=== PATIENT | female | born 1985 | race Caucasian/White ===

== ENCOUNTER 2018-05-22 11:55 | Outpatient (REF) | payer SELFPAY ==
[2018-05-22 20:12] LABS: Anion Gap 8.5 mmol/L (3-11); BUN 8 mg/dL (7-18); CO2 27.5 mmol/L (21.0-32.0); CREATININE 0.72 mg/dL (0.55-1.02); Chloride 101 mmol/L (98-107); Glucose 86 mg/dL (70-100); Potassium 4.8 mmol/L (3.5-5.1); Sodium 137 mmol/L (136-145)
[2018-05-23 12:54] LABS: Calcium 9.2 mg/dL (8.5-10.1)
== END 2018-05-22 12:15 ==
LOC: NCHCN 11:55
PROVIDERS: PCP Family Medicine; Visit Provider Family Medicine
DX: I10 Essential (primary) hypertension (principal)
CPT/HCPCS: 80048

== ENCOUNTER 2018-05-25 19:10 | Emergency (ER) | payer SELFPAY ==
[2018-05-25] VITALS (9 sets, daily range): BP systolic 153–156; BP diastolic 79–87; PULSE 98–114; RESP 4–39; TEMP 36.8; O2SAT 95–97
--- NOTE | 2018-05-25 19:26 | DI.RAD_ITS ---
SYMPTOMS/DIAGNOSIS: COUGH, SHORTNESS OF BREATH PA AND LATERAL CHEST: Comparison is made with August,. There is respiratory motion on the PA view. The heart size is within normal limits for degree of inspiration. The lungs appear clear. IMPRESSION: Limited exam. No acute abnormality.
--- NOTE | 2018-05-25 19:34 | ED.GENADUL_ITS ---
Discharge Plan Disposition Patient Disposition: HOME Condition: Fair Discharge Details Chief Complaint: RespSymp Clinical Impression: Pneumonia, Asthma exacerbation Primary Care Provider: Rosa Steve V ED Provider: Bernarda Presley Home Meds and New Rx's Prescriptions: New ipratropium-albuterol 0.5 mg-3 mg(2.5 mg base)/3 mL solution for nebulization 3 ml IH QID PRN (Reason: shortness of breath or wheezing) Qty: 15 RF: 0 azithromycin 250 mg tablet See Label Instructions .ROUTE .COMPLEX Qty: 6 RF: 0 No Action ibuprofen 800 MG tablet 800 mg PO Q8H PRN Qty: 60 RF: 1 atenolol 25 MG tablet 50 mg PO DAILY RF: 0 loratadine 10 MG tablet RF: 0 omeprazole 40 mg Capsule,Delayed Release(Dr/Ec) 40 mg PO BID RF: 0 lisinopril 10 mg Tablet 50 mg PO DAILY RF: 0 Discharge Instructions Instructions: Asthma (ED), Pneumonia (ED) Additional Instructions: Encourage hydration. Take antibiotics as prescribed, even if symptoms improve please take the entire course. Use the duoneb as prescribed to help with wheezing and shortness of breath. Please follow up with primary care next week for reevaluation. If you develop fevers/chills, increased shortness of breath or difficulty breathing please seek care urgently once again. Referrals: Rosa Steve MD [Primary Care Provider] - Medical Decision Making Patient is a 32-year-old female, coming by her , with chief complaint of cough and shortness of breath times 3 days. She reports that her cough has progressively been increasing. Reports is been dry nonproductive. SHe endorses pleuritic discomfort particularly with cough. States that today she had increased shortness of breath. Reports she is been using her albuterol inhaler without relief. No history of DVT. Patient is an active smoker, reports she smokes 1 pack/day. Denies any fevers or chills. Reports that she has had bilateral ear discomfort and sore throat but states that this is been improving since yesterday. Denies any GI upset, no nausea, vomiting or diarrhea. Patient status post tubal ligation. AT the time I evaluated the patient, HR 115, O2 93% RA. We will treat the patient with a duo nebulizer, obtain chest x-ray and laboratory evaluation. The patient received a DuoNeb, wheezing he has resolved. However, at this point I am now noting crackles in the right lower lobe Chest x-ray reviewed by radiologist. They note a small patchy density in the medial basal segment of the right lower lobe consistent with pneumonia given the proper clinical setting. Clear left lung. No pleural effusion or pneumothorax. Cardiomediastinal silhouette and pulmonary sutures are within normal limits White count is elevated at 14. D-dimer is less than 500. Laboratory evaluation otherwise without acute abnormality. Troponin less than 0.02 Patient received IV hydration. Heart rate is down to 98. Oxygen 97%. She does report that she continues to feel anxious regarding medical care. States that typically she gets white coat syndrome and her heart rate does typically elevate. Reports she is feeling much improved this is a duo nebulizer. Patient will begin on azithromycin, will give first dose here. Patient responded very well to the duo nebulizer. She does report that she has access to a nebulizer at home. Patient will be prescribed duo nebulizer and sent home with 2 tonight as pharmacies are currently closed. Encourage hydration. We discussed new/worsening symptoms when to seek care urgently once again. Advise follow-up with primary care next week for reevaluation. All of her questions and concerns were addressed and she is in agreement this plan HPI General Mode of arrival: ambulatory . Date/Time Provider Initiated Documentation: 05/25/18 19:18 . Limitations to Documentation: no limitations . Information obtained by: patient and family . History of Present Illness 32 year old F presents to the emergency department with the chief complaint of cough, described as moderate, Quality is described as aching, and is localized to the chest (diffuse discomfort). Patient denies radiation to back. Patient started experiencing this day(s) (3) and it has been constant. No relieving factors improve symptom(s), No exacerbating factors reported . Patient notes chest pain, cough and shortness of breath; denies fever/chills, headaches, loss of appetite, malaise, nausea/vomiting, rash, syncope and weakness. Patient did receive the following treatments prior to arrival, other (albuterol inhaler) Related Data Home Medications Medication Instructions Recorded Confirmed atenolol 50 mg PO DAILY 08/31/13 05/25/18 ibuprofen 800 mg PO Q8H PRN #60 tab 11/19/13 05/25/18 loratadine 04/26/17 azithromycin See Label Instructions .ROUTE 05/25/18 .COMPLEX #6 tab ipratropium-albuterol 3 ml IH QID PRN #15 ml 05/25/18 lisinopril 50 mg PO DAILY 05/25/18 05/25/18 omeprazole 40 mg PO BID 05/25/18 05/25/18 Previous Rx's Medication Instructions Recorded azithromycin See Label Instructions .ROUTE 05/25/18 .COMPLEX #6 tab ipratropium-albuterol 3 ml IH QID PRN #15 ml 05/25/18 Allergies Allergy/AdvReac Type Severity Reaction Status Date / Time methotrexate Allergy Severe Anaphylaxsi Unverified 05/25/18 19:19 s Penicillins Allergy Intermediate Skin Rash Unverified 05/25/18 19:19 Sulfa (Sulfonamide Allergy Intermediate RASH Unverified 05/25/18 19:19 Antibiotics) amoxicillin Allergy Mild Skin Rash Unverified 05/25/18 19:19 enalapril AdvReac Severe resp. Unverified 05/25/18 19:19 issues, chest pain General Stated Complaint: RespSymp KAREN: 3 Review of Systems Constitutional Reports as per HPI and Denies headache(s) Eyes Denies eye discharge ENT Reports as per HPI and Denies headache(s) Cardiovascular Reports as per HPI Respiratory Reports as per HPI Gastrointestinal Reports as per HPI Musculoskeletal Denies back pain Integumentary/Breasts Denies rash Neurologic Denies headache(s) [facility] Social History Smoking/Tobacco Use Status: Current every day Surgical History Ligation of fallopian tube Exam Const General: cooperative, healthy appearing, comfortable, no acute distress, well developed and well groomed Nutritional Appearance: average body habitus and well nourished Orientation: alert and awake [facility] Head: normal to inspection, normocephalic and atraumatic Ears: hearing grossly normal bilaterally, external ears normal and TM's normal bilaterally General nose exam: external nose normal Face and sinus: normal facial exam and sinuses nontender Mouth: lip normal, tongue normal, mucous membranes dry (patient appears dry on exam), no drooling and no trismus Teeth and gingiva: dentition normal Throat: posterior oropharynx normal, tonsils normal and uvula midline Eyes General: appearance normal, both eyes and all related structures Neck Neck: normal visual inspection, full ROM, no lymphadenopathy and no meningeal signs Resp Effort & Inspection: normal respiratory effort, able to speak in complete sentences and no respiratory distress Auscultation: no crackles, lung sounds not diminished, no rales, no rhonchi and wheezes expiratory wheezes (diffuse) Cardio Rate: regular rate Rhythm: regular rhythm Heart Sounds: S1 normal and S2 normal Skin General skin exam: no rashes or lesions noted Lesions: no lesions Rashes: no rashes Neuro General: alert, awake and oriented x3 Cognition: normal cognition Speech: speech normal Gait: normal gait Extrem General: no pedal edema and no calf tenderness Psych Appearance: grossly normal and well kempt Mental Status: mental status grossly normal Speech and Movement: speech and movement normal Mood: congruent mood Course Vital Signs Temperature 36.8 C 05/25/18 19:14 Pulse 113 H 05/25/18 19:14 Respiratory Rate 16 05/25/18 19:14 Blood Pressure 156/87 H 05/25/18 19:14 Pulse Oximetry 96 05/25/18 19:14 Temperature 36.8 C 05/25/18 19:14 Temperature Source Skin 05/25/18 19:14 Pulse 113 H 05/25/18 19:14 Respiratory Rate 16 05/25/18 19:14 Respiratory Effort 05/25/18 19:17 Respiratory Depth Normal 05/25/18 19:17 Blood Pressure 156/87 H 05/25/18 19:14 Blood Pressure Position Sitting 05/25/18 19:14 Pulse Oximetry 96 05/25/18 19:14 Oxygen Delivery Method Room Air 05/25/18 19:14 Oxygen Flow Rate 0 05/25/18 19:14
[2018-05-25] MEDS: Normal Saline 1,000 ML 1000 ML IV ×2 (19:36→20:46)
[2018-05-25] MEDS: Albuterol/Ipratropium 3 ML UPD VIAL (19:36)
[2018-05-25 19:41] LABS: Abs Immature Grans 0.04 k/cumm (0.0-0.09); Absolute Basophil Count 0.04 k/cumm (0.0-0.2); Absolute Eosinophil Count 0.27 k/cumm (0.0-0.7); Absolute Lymphocyte Count 2.84 k/cumm (1.2-3.4); Absolute Monocyte Count 0.86 k/cumm (0.11-0.7); Absolute Neutrophil Count 10.35 k/cumm (1.2-6.7); Basophils % 0.3; Eosinophils % 1.9; HCT 39.8 % (36.0-46.0); Immature Grans % 0.3; Lymphocytes % 19.7; Mean Corp. HGB Concentration 35.2 g/dL (32.0-36.0); Mean Corpuscular Hemoglobin 30.5 pg (27.0-33.0); Mean Corpuscular Volume 86.7 fL (80-95); Mean Platelet Volume 10.1 fL (8.0-11.0); Neutrophils % 71.8; Platelet Count 319 x1000/uL (130-400); RBC 4.59 m/cumm (4.00-5.20); RBC Distribution Width 12.7 % (11.7-14.6); White Blood Cell Count 14.41 k/cumm (4.4-10.8)
[2018-05-25 20:04] LABS: ALT 41 U/L (12-78); AST 19 U/L (15-37); Albumin 3.9 g/dL (3.4-5.0); Alkaline Phosphatase 51 U/L (46-116); BUN 12 mg/dL (7-18); Bilirubin, Total 0.3 mg/dL (0.2-1.0); Calcium 9.3 mg/dL (8.5-10.1); Chloride 100 mmol/L (98-107); Glucose 148 mg/dL (70-100); Magnesium 1.6 mg/dL (1.8-2.4); Potassium 3.8 mmol/L (3.5-5.1); Sodium 137 mmol/L (136-145); Total Protein 7.7 g/dL (6.4-8.2)
--- NOTE | 2018-05-25 20:05 | DI.VRAD_ITS ---
EXAM: XR Chest, 2 Views EXAM DATE/TIME: 05/25/2018 7:29 PM CLINICAL HISTORY: 32 years old, female; Signs and symptoms; Cough TECHNIQUE: XR of the chest, 2 views. COMPARISON: CR ABD FLAT UPRIGHT PA CHEST 03/22/2015 1:12 PM FINDINGS: Small patchy density in the medial basilar segment of the right lower lobe consistent with pneumonia given the proper clinical setting. Clear left lung. No pleural effusion or pneumothorax. The cardiomediastinal silhouette and pulmonary suture are within normal limits. IMPRESSION: Small right lower lobe opacity consistent with pneumonia given the proper clinical setting. Dictated and Authenticated by: Yo Gore MD. Ordering:AILYN KAMINSKI MD
[2018-05-25 20:11] LABS: Troponin I < 0.02 ng/mL (0.00-0.06)
[2018-05-25 20:22] LABS: D-Dimer 376 ng/mlFEU (<500)
[2018-05-25] MEDS: Azithromycin 250 MG TAB 500 MG PO (20:52)
[2018-05-25] MEDS: Albuterol/Ipratropium 3 ML UPD VIAL 6 ML UPD (21:09)
== END 2018-05-25 21:20 | disposition home or self-care (01) ==
LOC: ER 21:23
PROVIDERS: Emergency Provider Physician Assistant; PCP Family Medicine
DX: J44.0 Chronic obstructive pulmonary disease with (acute) lower respiratory infection (principal); J18.9 Pneumonia, unspecified organism; J45.909 Unspecified asthma, uncomplicated; F17.210 Nicotine dependence, cigarettes, uncomplicated; I10 Essential (primary) hypertension
CPT/HCPCS: 36415; 80053; 94640; 96360; 96361; 99284; 71046; 83735; 84484; 85025; 85379; J7620

== ENCOUNTER 2018-10-19 17:44 | Emergency (ER) | payer BC, SELFPAY ==
[2018-10-19 17:53] VITALS: BP 158/107; PULSE 83; RESP 18; TEMP 37.1; O2SAT 99
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
[2018-10-19 18:44] VITALS: BP 158/107; PULSE 83; RESP 18; TEMP 37.1; O2SAT 99
== END 2018-10-19 18:47 | disposition home or self-care (01) ==
PROVIDERS: Emergency Provider Emergency Medicine; PCP Family Medicine
DX: I10 Essential (primary) hypertension (principal); S00.03XA Contusion of scalp, initial encounter; W22.8XXA Striking against or struck by other objects, initial encounter
CPT/HCPCS: 99282

== ENCOUNTER 2019-04-10 16:33 | Outpatient (REF) | payer BC, SELFPAY ==
[2019-04-10 20:23] LABS: HCT 38.2 % (36.0-46.0); HGB 13.2 g/dL (12.0-15.5); Mean Corp. HGB Concentration 34.6 g/dL (32.0-36.0); Mean Corpuscular Hemoglobin 30.3 pg (27.0-33.0); Mean Corpuscular Volume 87.8 fL (80-95); Mean Platelet Volume 10.7 fL (8.0-11.0); Platelet Count 364 x1000/uL (130-400); RBC 4.35 m/cumm (4.00-5.20); RBC Distribution Width 12.6 % (11.7-14.6); White Blood Cell Count 10.45 k/cumm (4.4-10.8)
[2019-04-10 21:20] LABS: Anion Gap 11.5 mmol/L (3-11); BUN 7 mg/dL (7-18); C-Reactive Protein 0.27 mg/dL (0.0-0.3); CO2 24.5 mmol/L (21.0-32.0); CREATININE 0.78 mg/dL (0.55-1.02); Calcium 9.1 mg/dL (8.5-10.1); Chloride 101 mmol/L (98-107); Creatine Kinase 223 U/L (26-192); Glucose 85 mg/dL (70-100); Potassium 4.6 mmol/L (3.5-5.1); Sodium 137 mmol/L (136-145); TSH (W/Ref FT4) 1.12 uIU/mL (0.36-3.74)
== END 2019-04-10 16:53 ==
LOC: NCHCN 16:33
PROVIDERS: PCP Family Medicine; Visit Provider Family Medicine
DX: I10 Essential (primary) hypertension (principal); F41.8 Other specified anxiety disorders; F90.9 Attention-deficit hyperactivity disorder, unspecified type; M79.10 Myalgia, unspecified site
CPT/HCPCS: 80048; 82550; 85027; 84443; 86140

== ENCOUNTER 2019-07-25 17:46 | Outpatient (REF) | payer BC, SELFPAY ==
--- NOTE | 2019-07-25 16:30 | PAPFT_PTH ---
PATIENT: Shraddha Fraga LOC: [facility] U#:[id number] AGE/SX: 34/F ROOM: RE07/25/[address]: Rosa Steve V : 1985 BED: DIS: 07/25/2019 SPEC #: [id number] RECD: 07/26/19 12:45 STATUS: LEA REDanielle #: [id number] MISSY: 07/25/19 16:[address]: Rosa Steve V DEPT: [facility] Cytology RECD BY: Ann Lerner Tissues: 1 - CX/ENDOCX FOR PAP SMEARS Procedures: PAP THIN PREP/[facility] Screening HPV DNA PROBE Comments: [id number]
[2019-07-29 11:32] LABS: Hepatitis C Ab w Rflx HCV PCR Negative (Negative)
[2019-07-29 12:53] LABS: HIV-1/2 Ag & Ab Screen Negative (Negative)
[2019-07-29 14:24] LABS: Chlamydia Result Negative (Negative); GC Result Negative (Negative)
== END 2019-07-25 18:06 ==
LOC: NCHCN 17:46
PROVIDERS: PCP Family Medicine; Visit Provider Family Medicine
DX: Z11.3 Encounter for screening for infections with a predominantly sexual mode of transmission (principal); Z11.4 Encounter for screening for human immunodeficiency virus [HIV]; Z12.4 Encounter for screening for malignant neoplasm of cervix; Z11.51 Encounter for screening for human papillomavirus (HPV); Z11.59 Encounter for screening for other viral diseases; Z01.419 Encounter for gynecological examination (general) (routine) without abnormal findings
CPT/HCPCS: 86803; 87389; 87491; 87591; 88142; 87624

== ENCOUNTER 2019-09-30 11:04 | Outpatient (CLI) | payer BC, SELFPAY | END 2019-09-30 11:24 | PROVIDERS: PCP Family Medicine; Visit Provider Internal Medicine Cardiovascular Disease | DX: I10 Essential (primary) hypertension (principal); R01.1 Cardiac murmur, unspecified | CPT/HCPCS: 93005; 93010 ==

== ENCOUNTER 2019-11-05 14:41 | Outpatient (CLI) | payer BC, SELFPAY ==
[2019-11-08 09:23] LABS: SARS-CoV-2 RNA Undetected (Undetected); SARS-CoV-2 Specimen Source Nasal
== END 2019-11-05 15:01 ==
PROVIDERS: PCP Family Medicine; Visit Provider Physician Assistant
DX: Z20.828 Contact with and (suspected) exposure to other viral communicable diseases (principal); R05 Cough; R06.02 Shortness of breath; R50.9 Fever, unspecified
CPT/HCPCS: U0003

== ENCOUNTER 2020-01-13 02:28 | Outpatient (CLI) | payer BC, SELFPAY ==
--- NOTE | 2020-01-13 12:15 | DI.US_ITS ---
APPROVED REPORT EXAM: Comprehensive 2D, Doppler, and color-flow Echocardiogram Patient Location: Out-Patient Pharmacy Retail Support Specialist: Maribell Mccracken RDCS (AE) Indications: Murmur, HTN Other Information Study Quality: Good Conclusion Left Ventricle : The left ventricle is normal size. The left ventricular systolic function is normal. The left ventricular ejection fraction is within the normal range. There is normal left ventricular wall thickness. There is normal LV segmental wall motion. The left ventricular diastolic function is normal. LVEF is 60%. Right Ventricle : The right ventricle is normal size. The right ventricular systolic function is norm al. The RVSP is 28.7 mmHg. Atria : The left atrium size is normal. The right atrium size is normal. There are no hemodynamically significant valvular lesions. Great Vessels : IVC is normal in size and collapses >50% with inspiration. There is no prior study available for comparison. Wall motion Left Ventricle The left ventricle is normal size. The left ventricular systolic function is normal. The left ventric ular ejection fraction is within the normal range. There is normal left ventricular wall thickness. T here is normal LV segmental wall motion. The left ventricular diastolic function is normal. There is no ventricular septal defect visualized. LVEF is 60%. Right Ventricle The right ventricle is normal size. The right ventricular systolic function is normal. The RVSP is 28 .7 mmHg. Atria The left atrium size is normal. The right atrium size is normal. Aortic Valve Aortic valve is trileaflet. There is no aortic valvular stenosis. No aortic regurgitation is present. Mitral Valve The mitral valve is normal in structure. No evidence of mitral valve stenosis. Trace mitral regurgita tion. Tricuspid Valve The tricuspid valve is normal in structure. There is no tricuspid valve stenosis. Mild tricuspid regu rgitation. Pulmonic Valve The pulmonary valve is normal in structure. There is no pulmonic valvular stenosis. There is no pulmo ruby valvular regurgitation. Great Vessels The aortic root is normal in size. Ascending aorta is borderline dilated. Aortic arch is normal in ca liber. IVC is normal in size and collapses >50% with inspiration. Pericardium There is no pericardial effusion. There is no pleural effusion. 2D Dimensions IVSD d PLAX 0.96 cm F: 0.6-1.0 LV Vol A2C d MOD 88.1 mL LVPW d PLAX 0.95 cm F: 0.6 - 1.0 LV Vol A4C d MOD 77.3 mL LVID d PLAX 4.33 cm F: 3.8 - 5.2 LA vol/ BSA A2C s A-L 20.3 mL/m2 LVDs 3.05 cm F: 2.2 - 3.5 LA vol/ BSA A4C s A-L 17.7 mL/m2 Ao Root d 2.08 cm F: 2.7 - 3.3 LA Vol/ BSA Biplane s A-L 19.8 mL/m2 RA Area A4C 15.45 cm2 LA Area A4C s MOD 13.53 cm2 RA Vol/ BSA A4C s A-L 23.0 mL/m2 LA Area A2C s MOD 13.82 cm2 Ao Asc Diam d 3.25 cm F: 2.3 - 3.1 LV EF A4C MOD 60.2 % LV EF Teichholz 55.5 % LV EF A2C MOD 61.8 % LVEF (Kidd's) 61.43 % F: 54 - 74 LV EF Biplane MOD 61.4 % LV Volume 64.80 mL F: 46 - 106 SV 51.28 mL LV Volume Index 35.80 mL/m2 F: 29 - 61 SV Index 28.33 mL/m2 LV Vol Biplane MOD 83.5 mL FS 28.60 % M-Mode TAPSE 2.82 cm (M/F) >1.7 LV Diastology MV E' medial 0.090 (>0.07 m/s) E/A Ratio 1.5 LV E/e MED 12.10 (<14) MV E Vmax 1.09 (0.4-1.3 m/s) MV E' lateral 0.134 (>0.1 m/s) MV A Vmax 0.75 (0.4-1.3 m/s) LV E/e LAT 8.10 (<14) MV E/A Ratio 1.40 MV E/E' medial 12.12 MV E/E' lateral 8.14 Aortic Valve LVOT Area 2.55 cm2 AoV Area Vmax 2.03 cm2 LVOT Vmax 1.35 m/s AoV Area/ BSA (Vmax) 1.12 cm2/m2 LVOT Mean Ortega. 0.88 m/s YONI Mean Ortega. 1.90 cm2 LVOT Peak Grad 7.3 mmHg YONI Mean Ortega. Index 1.05 cm2/m2 LVOT Mean Grad 3.7 mmHg LVOT VTI 0.296 m LVOT Diam s 1.80 cm AoV Vmax 1.69 m/s Velocity Ratio 0.79 AoV Mean Ortega. 1.18 m/s AoV Peak Grad 11.5 mmHg LVOT SV 75.67 mL AoV Mean Grad 6.2 mmHg AoV VTI 0.334 m AoV Area VTI 2.27 cm2 AoV Area/ BSA (VTI) 1.25 cm/m2 Mitral Valve MV DT 207 (160-240 msec) MV PHT 60 msec MV Area PHT 3.66 cm2 Pulmonary Valve PV Vmax 1.35 (0.5-1.5 m/s) RVOT Peak Gr. 3.33 mmHg PV Peak Grad 7.3 mmHg RVOT Mean Gr. 1.65 mmHg PV Mean Grad 4.1 mmHg RVOT VTI 0.199 m PV VTI 0.292 m RVOT Vmax 0.91 m/s Tricuspid Valve TR Peak Grad 25.6 mmHg TR Vmax 2.53 m/s RA Pressure 3.00 mmHg RVSP (TR) 28.7 mmHg
== END 2020-01-13 02:48 ==
PROVIDERS: PCP Family Medicine; Visit Provider Internal Medicine Cardiovascular Disease
DX: I10 Essential (primary) hypertension (principal); R01.1 Cardiac murmur, unspecified
CPT/HCPCS: 93306

== ENCOUNTER 2020-03-30 00:47 | Outpatient (CLI) | payer BC, SELFPAY ==
--- NOTE | 2020-03-30 08:15 | DI.US_ITS ---
EXAM: US HERNIA CLINICAL HISTORY: Right groin mass,R19.09 TECHNIQUE: Ultrasound performed using standard protocol. COMPARISON: US US ECHOCARDIOGRAM from 01/13/2020 FINDINGS: Ultrasound examination of the right inguinal region was performed to evaluate questionable right groi n mass. A right inguinal lymph node was incidentally measuring about 11 millimeters in greatest diam eter with normal architecture. There is a 26 millimeter in diameter apparent inguinal hernia which was not demonstrated to be comple tely reducible. No definite bowel component of the hernia. IMPRESSION: Small right inguinal hernia as described above. DATA REPOSITORY:
== END 2020-03-30 01:07 ==
PROVIDERS: PCP Family Medicine; Visit Provider Surgery
DX: K40.90 Unilateral inguinal hernia, without obstruction or gangrene, not specified as recurrent (principal)
CPT/HCPCS: 76857

== ENCOUNTER 2020-05-26 21:56 | Outpatient (REF) | payer BC, SELFPAY ==
[2020-05-28 20:45] LABS: COVID-19 RT-PCR Result NEGATIVE (Negative)
== END 2020-05-26 22:16 ==
LOC: NCHCN 21:56
PROVIDERS: PCP Family Medicine; Visit Provider Family Medicine
DX: R05 Cough (principal)
CPT/HCPCS: U0003

== ENCOUNTER 2020-07-24 02:07 | Outpatient (CLI) | payer BC, SELFPAY ==
[2020-07-27 21:28] LABS: COVID-19 RT-PCR Result NEGATIVE (Negative)
== END 2020-07-24 02:27 ==
PROVIDERS: PCP Family Medicine; Visit Provider Surgery
DX: Z11.59 Encounter for screening for other viral diseases (principal); Z01.818 Encounter for other preprocedural examination
CPT/HCPCS: U0003

== ENCOUNTER 2020-07-28 06:04 | Day surgery (SDC) | payer BC, SELFPAY ==
[2020-07-28 06:16] VITALS: BP 141/99; PULSE 86; RESP 22; TEMP 36.5; O2SAT 99
[2020-07-28] MEDS: Lactated Ringers 1,000 ML 80 ML IV (06:53)
--- NOTE | 2020-07-28 07:01 | W.PM.HP.N ---
Date of service: 07/28/20 Time of Service: 07:01 Assessment and Plan Assessment and plan (1) Right groin mass: Status: Acute Assessment and plan: We discussed right inguinal hernia repair. The procedure was described including the risk of infection, bleeding, recurrence, chronic pain or numbness or vascular injury. The alternative is observation although hernias tend to enlarge and become more symptomatic over time. The patient was advised not to lift more than 15 pounds for one month postop. The patient agrees to proceed. If the chronic cyst looks amenable to excision, this will be done as well. There is a risk of infection, bleeding, healing problems. History of Present Illness Narrative: Lump in right groin since September. Increased in size. Bothersome along underwear line. Antibiotics may have helped slightly. US showed small fat containing hernia. She also recently notes a small draining cyst a little lower in the groin. Review of Systems All systems reviewed & are unremarkable except as noted in HPI and below PFSH Medical History ADHD Allergic rhinitis Boil Depression with anxiety Dysfunctional uterine bleeding GERD (gastroesophageal reflux disease) Headache Heart murmur Herpes simplex HTN (hypertension) Ingrown toenail Migraine Myalgia Preeclampsia reported by patient. PTSD (post-traumatic stress disorder) Right groin mass Sleep apnea Viral upper respiratory infection Vitamin D deficiency Weight gain Surgical History Ligation of fallopian tube Family History Mother Stroke Uncle Myocardial infarct Paternal Grandmother Stroke Father Myocardial infarct Social History Smoking/Tobacco Use Status: Current every day Tobacco Type: cigarettes Years smoked: 16 Tobacco: How many years used: 16 Counseling given: patient declined Smoking risk assessment performed?: Yes Alcohol Intake: current Alcohol Intake frequency: holidays/special occasions only Drug use: Daily Substance use type: marijuana What type of physical activity do you participate in: none Do you feel safe at home: Yes Do you feel safe in your relationship?: Yes Meds Home Medications and Allergies Home Medications Medication Instructions Recorded Confirmed Type omeprazole 40 mg PO BID 05/25/18 07/28/20 History acyclovir 400 mg PO TID PRN PRN 10/19/18 07/28/20 History albuterol sulfate [ProAir HFA] 2 puff INHALATION Q6H PRN 10/19/18 07/28/20 History atenolol 50 mg PO DAILY 10/19/18 07/28/20 History cyclobenzaprine 5 mg PO QHS PRN 10/19/18 07/28/20 History losartan 50 mg PO DAILY 10/19/18 07/28/20 History multivitamin 1 tab PO DAILY 09/30/19 07/28/20 History duloxetine 30 mg capsule,delayed 60 mg PO DAILY cap 01/23/20 07/28/20 History release lidocaine 5 % topical ointment 1 applic TP QID 03/23/20 07/28/20 History nicotine 21 mg/24 hr daily 1 patch TD DAILY 03/23/20 History transdermal patch hydrochlorothiazide 25 mg tablet 25 mg PO DAILY 03/26/20 07/28/20 History Allergies Allergy/AdvReac Type Severity Reaction Status Date / Time clindamycin Allergy Severe rash Verified 07/28/20 06:26 methotrexate Allergy Severe Anaphylaxsi Verified 07/28/20 06:26 s azithromycin [From Zithromax] Allergy Intermediate unknown Verified 07/28/20 06:26 Penicillins Allergy Intermediate Skin Rash Verified 07/28/20 06:26 Sulfa (Sulfonamide Allergy Intermediate RASH Verified 07/28/20 06:26 Antibiotics) sumatriptan [From Imitrex] Allergy Intermediate It made Verified 07/28/20 06:26 me stop breathing amoxicillin Allergy Mild Skin Rash Verified 07/28/20 06:26 enalapril AdvReac Severe resp. Verified 07/28/20 06:26 issues, chest pain bupropion [From Wellbutrin] AdvReac Intermediate chronic Verified 07/28/20 06:26 cough medroxyprogesterone AdvReac Intermediate weight gain Verified 07/28/20 06:26 [From Depo-Provera] Exam Narrative Exam Narrative: Alert Lungs CTA Heart RRR Abdomen soft, tender RLQ with impulse felt in region of inguinal hernia. Closer to mons pubis there is a small area of chronic inflammation. No abscess. Results Last Vital Signs Temp 97.7 F 07/28/20 06:16 Pulse 86 07/28/20 06:16 Resp 22 07/28/20 06:16 BP 141/99 H 07/28/20 06:16 Pulse Ox 99 07/28/20 06:16 COVID-19 Screening Have you, or household traveled for leisure in last 14 days?: No Had IN PERSON contact w/suspected or confirmed C-19 person: No
[2020-07-28] MEDS: levoFLOXacin 500 MG/100 ML BAG 66.667 MG IVPB (07:05)
--- NOTE | 2020-07-28 07:31 | W.PM.DSUDISC ---
Discharge Plan Disposition Patient Disposition: HOME Condition: Good Discharge Details Reason For Visit: Right inguinal hernia repair, groin cyst excision Attending Provider: Lesli Melendez Primary Care Provider: Rosa Steve V Home Meds and New Rx's Prescriptions: New oxycodone-acetaminophen [Percocet] 5-325 mg tablet 1 tab PO Q6H PRNQty: 14 RF: 0 Continued multivitamin Tablet 1 tab PO DAILY RF: 0 nicotine [Nicoderm CQ] 21 mg/24 hr patch 24 hour 1 patch TD DAILY RF: 0 lidocaine 5 % ointment 1 applic TP QID RF: 0 hydrochlorothiazide 25 mg tablet 25 mg PO DAILY RF: 0 duloxetine [Cymbalta] 30 mg capsule,delayed release(DR/EC) 60 mg PO DAILY RF: 0 omeprazole 40 mg Capsule,Delayed Release(Dr/Ec) 40 mg PO BID RF: 0 losartan 50 mg Tablet 50 mg PO DAILY RF: 0 acyclovir 400 mg Tablet 400 mg PO TID PRN PRNRF: 0 albuterol sulfate [ProAir HFA] 90 mcg/actuation Hfa Aerosol Inhaler 2 puff INHALATION Q6H PRNRF: 0 atenolol 50 mg Tablet 50 mg PO DAILY RF: 0 cyclobenzaprine 5 mg Tablet 5 mg PO QHS PRNRF: 0 Discharge Instructions Additional Instructions: The top bandage can be removed tomorrow. The steri strips will usually stick for about a week. When the edges start to curl up, they can be removed. It is okay to shower tomorrow, the water can run over the steri strips Do not swim or soak in a tub for two weeks Call for any concerns including fever, increased pain, vomiting, incision redness or drainage. Do not lift more than 15 pounds for four weeks. Walking and stairs are fine. Do not drive if on narcotic pain meds or if limited by pain. May use Tylenol alternating with ibuprofen for pain control. Ice is also an option. The maximum dose for Tylenol is 4000 mg/day. May use ibuprofen 800 mg every 8 hours as needed. If concerned about constipation, you may use a stool softener or milk of magnesia. Referrals: Lesli Melendez MD [ [facility] STAFF PHYSICIAN] - 08/03/20 Activity:: Do not lift more than 15# Remove Dressings/Wound Care:: 24 hours Shower/Bathe:: 24 hours Diet:: As Tolerated Discharge Orders Discharge Orders: Discharge Order (Routine); Ordered 07/28/20 Ordered By: Lesli Melendez DS: Diagnosis Discharge Diagnosis (1) Direct inguinal hernia of right side: Status: Acute (2) Groin cyst: Status: Acute
--- NOTE | 2020-07-28 07:34 | W.PM.OP ---
Date of service: 07/28/20 Time of Service: 09:02 Operative Note Operative Note DATE OF PROCEDURE: 07/28/20 PRE-OP DIAGNOSIS: Right inguinal hernia, chronic right groin cyst POST-OP DIAGNOSIS: same PROCEDURE: Right direct inguinal hernia repair with mesh, excision chronic right groin cyst SURGEON: Lesli Melendez CIRCULAR KNITTER: Doris Meyers ANESTHESIA: MAC and local Indications: This 35 year old woman presented with a tender lump in the right groin. US showed a small fat containing hernia. She has also developed a small skin cyst lower in the groin that drains slightly. Procedure Description: The patient was placed supine on the operating table and her right groin was prepped and draped sterilely. The ASIS and pubic tubercle were identified and a transverse incision marked between the 2 locations. Local anesthetic was infiltrated into the hernia incision and around the chronic groin cyst. The Ioban was placed. Incision was made with knife and subcutaneous tissue divided with cautery down to the external oblique fascia. Any bridging veins that were encountered were clamped, divided and ligated with 3-0 Vicryl ties. Local anesthetic was infiltrated underneath the external oblique fascia. A small incision was made in the fascia and extended bluntly through the external inguinal ring. The round ligament was dissected free at the level of the pubic tubercle and encircled with a Counselor drain. There was small defect within the floor of the inguinal canal containing fat. Exploration of the round ligament/internal inguinal area did not reveal an indirect hernia. The defect in the floor of the canal was closed with a 2-0 Prolene suture. A flat sheet of mesh was sutured to the floor of the inguinal canal in standard Louis fashion. The ligament was inspected and was not compressed by the mesh. There was good hemostasis. The external oblique fascia was closed with a running 3-0 Vicryl stitch and Sandra's fascia closed with interrupted 3-0 Vicryl sutures. The skin was then closed with a running 4 Monocryl subcuticular stitch and dressed with steri strips. The chronic cyst opening was excised with an elliptical incision to reveal an area of subcutaneous granulation tissue and fibrous tissue consistent with a chronic cyst. This was dissected free with sharp and cautery dissection. The skin was closed with 5-0 nylon sutures times 5. Excision diameter 1.5cm. She tolerated the procedure well and was stable to recovery.
--- NOTE | 2020-07-28 08:55 | SOFT_PTH ---
PATIENT: Shraddha Fraga LOC: [facility] U#:[id number] AGE/SX: 35/F ROOM: RE07/28/[address]: Lesli Melendez MD : [id number] BED: DIS: 07/28/2020 SPEC #: [id number] RECD: 07/28/20 12:44 STATUS: LEA REQ #: [id number] MISSY: 07/28/20 08:[address]: Lesli Melendez DEPT: Surgical Specimen RECD BY: Ann Lerner ENTERED: 07/28/20 12:45 SP TYPE: SOFT OTHR DR: Rosa Steve V Tissues: 1 - SOFT TISSUE-CYST(NOT LIPOMA) Procedures: GROSS AND MICRO LEVEL 4 Comments: [id number]
[2020-07-28] MEDS: Lidocaine 2% Multi-Dose 50 ML VIAL (08:56)
[2020-07-28] MEDS: Bupivacaine 0.5% Pres-Free 30 ML VIAL (08:56)
[2020-07-28 09:05] VITALS: BP 100/57; PULSE 77; RESP 24; TEMP 36.5; O2SAT 98
[2020-07-28 09:10] VITALS: BP 106/53; PULSE 79; RESP 24; TEMP 36.5; O2SAT 96
[2020-07-28 09:15] VITALS: BP 98/85; PULSE 79; RESP 29; TEMP 36.5; O2SAT 94
[2020-07-28 09:30] VITALS: BP 120/61; PULSE 76; RESP 19; TEMP 36.5; O2SAT 98
[2020-07-28 10:12] VITALS: BP 115/69; PULSE 66; RESP 20; TEMP 36.3; O2SAT 100
== END 2020-07-28 10:37 | disposition home or self-care (01) ==
PROVIDERS: PCP Family Medicine; Visit Provider Surgery
PROC: (CPT 49505; principal; 2020-07-28 07:30)
DX: K40.90 Unilateral inguinal hernia, without obstruction or gangrene, not specified as recurrent (principal); L72.8 Other follicular cysts of the skin and subcutaneous tissue; K21.9 Gastro-esophageal reflux disease without esophagitis; I10 Essential (primary) hypertension; G47.33 Obstructive sleep apnea (adult) (pediatric)
CPT/HCPCS: 49505; 11402; 81025; 88305; NC; C1781; J1100; J1885; J1956; J2250; J2405; J2704

== ENCOUNTER 2020-09-30 08:54 | Outpatient (REF) | payer BC, SELFPAY ==
[2020-09-30 15:50] LABS: ALT 32 U/L (14-59); AST 15 U/L (15-37); Albumin 3.9 g/dL (3.4-5.0); Alkaline Phosphatase 37 U/L (46-116); Anion Gap 12.3 mmol/L (3-11); BUN 17 mg/dL (7-18); Bilirubin, Total 0.3 mg/dL (0.2-1.0); CO2 25.7 mmol/L (21.0-32.0); CREATININE 0.8 mg/dL (0.55-1.02); Calcium 9.1 mg/dL (8.5-10.1); Calculated LDL 114 mg/dL (<100); Chloride 101 mmol/L (98-107); Cholesterol 228 mg/dL (<200); Glucose 101 mg/dL (74-106); HDL Cholesterol 35 mg/dL (40-60); Potassium 4.2 mmol/L (3.5-5.1); Sodium 139 mmol/L (136-145); Total Protein 7.2 g/dL (6.4-8.2); Triglyceride 397 mg/dL (<150)
[2020-09-30 15:53] LABS: Hemoglobin A1C 6.1 % (<5.7)
== END 2020-09-30 08:55 | disposition home or self-care (01) ==
LOC: NCHCN 08:54
PROVIDERS: PCP Family Medicine; Visit Provider Family Medicine
DX: I10 Essential (primary) hypertension (principal); Z13.1 Encounter for screening for diabetes mellitus
CPT/HCPCS: 80053; 80061; 83036

== ENCOUNTER 2021-02-01 12:38 | Emergency (ER) | payer BC, SELFPAY ==
--- NOTE | 2021-02-01 12:45 | RT.EKG_ITS ---
APPROVED REPORT Exam: Resting ECG Reason for Exam: right side numbness Patient Location: E HR:80 bpm ECG Measurements Heart Rate 80 AXIS MI 154 P -1 QRSd 85 QRS 28 QT 367 T -5 QTc 424 Conclusion Sinus rhythm...normal P axis, V-rate 60- 99. TWI in lead III. No change from previous. No STEMI. I have reviewed and interpreted ECG and agree with software generated interpretation.
[2021-02-01 12:47] VITALS: BP 134/67; PULSE 86; RESP 20; TEMP 37.1; O2SAT 97
--- NOTE | 2021-02-01 13:15 | DI.MRI_ITS ---
Exam(s) MR ANGIO NECK WO CLINICAL HISTORY: R arm and leg weakness, r/o acute cva. TECHNIQUE: Magnetic resonance angiography of the neck was performed using [id number] sequence CONTRAST MATERIAL: None COMPARISON: None. FINDINGS: ANTERIOR CIRCULATION: Common carotid arteries ascend with normal luminal diameters. There is no significant stenosis at th e carotid bifurcation and proximal internal carotid arteries on the left side. Mild stenosis in the p roximal right internal carotid artery, approximately 30 percent. Upper left internal carotid artery in the neck appears unremarkable. However, on the right side there is a mild-moderate focal stenosis in the right internal carotid artery in the skull base POSTERIOR CIRCULATION: Both vertebral arteries arise in conventional fashion off of the subclavian arteries. There is no ob vious tight stenosis in the subclavian arteries proximal to the vertebral artery takeoff points. The right vertebral artery is dominant. Both vertebral arteries contribute to the formation of the basi lar artery at the skull base. There is no evidence of vertebral artery thrombosis nor vertebral carmita ry dissection. IMPRESSION: 1. Mild narrowing of the proximal right internal carotid artery just above the carotid bifurcation. 2. There is also focal narrowing in the right internal carotid artery at the skull base. 3. See separate brain MRA study which reveals abnormalities. 4. This patient requires CT angiography of the aortic arch, carotid arteries in the neck, and intracr anial arteries. Above findings were discussed by myself with the ER physician following completion of the study 02/01 DATA REPOSITORY:
--- NOTE | 2021-02-01 13:15 | DI.MRI_ITS ---
Exam(s) MR BRAIN WO EXAM: MR BRAIN WO CLINICAL HISTORY: R arm and leg weakness and numbness TECHNIQUE: Multiplanar multisequence MRI of the brain was performed. COMPARISON: No exams were available for comparison FINDINGS: CEREBRAL PARENCHYMA: There is no evidence of intracranial hemorrhage, mass effect, or shift of midline structures. There are no extra-axial fluid collections. Ventricles are not enlarged or shifted. There is no significant focal signal abnormality in the cerebellar hemispheres nor within the josiah, m idbrain, and thalami. There is no abnormal signal abnormality in the periventricular white matter. There is no significant focal signal abnormality evident on diffusion imaging to suggest acute ischem ic event. PITUITARY GLAND: No mass nor parasellar abnormality. No obvious abnormality in the cavernous sinuses. FLOW VOIDS: The expected flow void are noted. No evidence of obvious aneurysm nor obvious vascular ma lformation. PARANASAL SINUSES: There is fluid in the right sphenoid sinus. Visualized maxillary and frontal sinu ses are clear. There is mucosal thickening in the single left-sided ethmoidal air cell. There is so me mucosal thickening in a single left-sided ethmoidal air cell. ORBITS: No obvious findings. On the sagittal T2 weighted sequence there appears to be abnormal linear signal in the visualized upp er cervical spinal cord. There is noted cerebellar tonsillar ectopia. IMPRESSION: No significant intracranial findings on this noninfused MRI scan of the brain. Possible abnormality in the visualized upper cervical spinal cord. Possibly representing artifact bu t I recommend cervical MRI including thin slice T2 sagittal images. There is fluid in the right sphenoid sinus. DATA REPOSITORY:
--- NOTE | 2021-02-01 13:15 | DI.MRI_ITS ---
Exam(s) MR ANGIO BRAIN WO EXAM: MR ANGIO BRAIN WO CLINICAL HISTORY: R arm and leg numbness and weakness, r/o cva TECHNIQUE: Performed with [id number] sequence COMPARISON: No exams were available for comparison FINDINGS: ANTERIOR CIRCULATION: Both internal carotid arteries are patent within the carotid canals and cavernous sinuses. supraclin oid aspects are also patent. middle cerebral arteries are patent. A1 segments exhibit significant b eading in the right A1 segment with focal significant stenosis at its junction with the right anterio r cerebral artery and there also appears to be significant stenosis in the right-side of the anterior communicating artery. POSTERIOR CIRCULATION: Both vertebral arteries contribute to the Greg isbell of the basilar artery at the skull base. Basilar artery ascends with normal luminal diameter slightly to the left of midline. Distally it gives off superior cerebellar arteries. Above this level terminates as patent bilateral posterior cerebral art eries. There is no evidence of aneurysm of the tip of the basilar artery. IMPRESSION: 1. Abnormal findings as described above. This patient will require CT angiography DATA REPOSITORY:
[2021-02-01] MEDS: LORazepam 2 MG/ML VIAL 0.5 MG IVP (13:32)
[2021-02-01] MEDS: Normal Saline 1,000 ML 1000 ML IV (13:34)
--- NOTE | 2021-02-01 13:37 | W.ED.GENAD ---
Discharge Plan Disposition Patient Disposition: AGAINST MEDICAL ADVICE Condition: Improving Discharge Details Clinical Impression: Paresthesia of right arm, Paresthesia of right leg Primary Care Provider: Rosa Steve V ED Provider: Storm Manjarrez Home Meds and New Rx's Prescriptions: New clopidogrel [Plavix] 75 mg tablet 75 mg PO DAILY 30 Days Qty: 30 RF: 0 Continued multivitamin Tablet 1 tab PO DAILY RF: 0 nicotine [Nicoderm CQ] 21 mg/24 hr patch 24 hour 1 patch TD DAILY RF: 0 lidocaine 5 % ointment 1 applic TP QID RF: 0 hydrochlorothiazide 25 mg tablet 25 mg PO DAILY RF: 0 duloxetine [Cymbalta] 30 mg capsule,delayed release(DR/EC) 60 mg PO DAILY RF: 0 omeprazole 40 mg Capsule,Delayed Release(Dr/Ec) 40 mg PO BID PRNRF: 0 losartan 50 mg Tablet 50 mg PO DAILY RF: 0 acyclovir 400 mg Tablet 400 mg PO TID PRN PRNRF: 0 albuterol sulfate [ProAir HFA] 90 mcg/actuation Hfa Aerosol Inhaler 2 puff INHALATION Q6H PRNRF: 0 atenolol 50 mg Tablet 100 mg PO HS RF: 0 cyclobenzaprine 5 mg Tablet 5 mg PO QHS PRNRF: 0 verapamil 180 mg tablet extended release 180 mg PO DAILY RF: 0 aspirin 81 mg Tablet 81 mg PO DAILY RF: 0 Discharge Instructions Instructions: Transient Ischemic Attack (ED), Paresthesia (ED) Additional Instructions: It is possible that you had a transient ischemic attack, which is a warning sign of a stroke. The neurologist Dr. Uribe is recommending adding Plavix 75 mg by mouth daily for 30 days to your daily 81 mg aspirin regimen. You elected to leave AGAINST MEDICAL ADVICE to await final CT scan reading. You have been placed on our care management list to help arrange a follow-up appointment with the neurologist Dr. Uribe in the next 3 weeks. You can also call her office as soon as possible to schedule or confirm this appointment. Follow-up with your primary care doctor or with neurology for an outpatient cervical spine MRI for further evaluation of the findings noted on your MRI brain today. Return immediately to the emergency department if you develop any worsening or new concerning symptoms. Referrals: Aniya Uribe MD [ [facility] STAFF PHYSICIAN] - Discharge Data Discharge Date/Time-TO BE ENTERED AT DEPARTURE: 02/01/21 16:55 Discharge Physician: Shelly Larios Medical Decision Making <Shelly Larios DO - Last Filed: 02/02/21 20:21> 35-year-old female with a history of obesity, migraine and hypertension on multiple blood pressure medications presents for a 4-hour episode of right arm paresthesias and weakness and a 1 hour episode of right leg paresthesias and weakness now currently asymptomatic. Blood pressure 134/67. She appears comfortable and nontoxic. She has no focal deficits on exam. Discussed with patient the possibility of TIA given her history and symptom presentation. Also consider atypical migraine, dehydration, electrolyte abnormality. Will place an IV, bolus IV fluids, screening labs, MRI brain, MRA brain and neck. Patient is requesting a dose of Ativan prior to MRI. EKG notes a rate of 80, sinus with T wave inversion in lead III which is seen previously, no acute change. Labs reviewed and unremarkable. Case discussed with Dr. Uribe who reviewed MR imaging and does not see any acute findings in the brain or neck. Considering patient's history and timeframe of symptoms, TIA in the differential and recommends coverage with aspirin and Plavix. Patient is already taking 81 mg aspirin, will add 75 mg Plavix daily for 30 days. Also consider migraine. Recommend follow-up with her in the next few weeks in the office. Dr. Sanchez reviewed MRI and MRA imaging. Recommend CTA head and neck for stenosis noted on MRA imaging. This was discussed with Dr. Uribe who agrees with plan for CTA head and neck. Dr. Sanchez also recommends MRI cervical spine for a linear signal abnormality in the upper cervical spinal cord which may be artifact. This was also discussed with Dr. Uribe and as patient has no focal complaints or deficits, this can be done as an outpatient which patient is agreeable and states she does not want to stay for a cervical spine MRI. Patient initially hesitant to stay for the CTA head and neck but is now agreeable. Case endorsed to Dr. Manjarrez to follow-up on CTA head and neck images. If no acute findings and patient barb asymptomatic, can likely plan for discharge home with follow-up with neurology outpatient and for outpatient cervical spine MRI. Medical Records Medical records reviewed: Yes I reviewed the patient's medical records. Imaging Data Radiologic Study: Radiologist's impression: CT BRAIN NECK CTA CLINICAL HISTORY: R arm and leg numbness and weakness. TECHNIQUE: Imaging Protocol: Axial CT angiography was performed with multi-slice acquisition and multi-planar and/or 3D reconstructions. CONTRAST MATERIAL: Intravenous: Omnipaque 350 Contrast volume:structured data in ml COMPARISON: No exams were available for comparison FINDINGS: CT angiography of the cervical cranial region was performed according to the usual protocol with intravenous infusion of 85 cc of Omnipaque 350.. Initial noncontrast scanning of the head is unremarkable. Visualized lung apices are clear. Visualized portions of thoracic aorta and pulmonary arterial circulation are unremarkable. There is no evidence of a cervical mass or adenopathy. The tracheal laryngeal structures appear intact. The common, internal, and external carotid arteries are within normal limits in the cervical region with no evidence of aneurysm, stenosis, or dissection. The vertebral arteries are unremarkable in appearance in the cervical region with no evidence of aneurysm, stenosis, or dissection. Intracranial portions of the internal carotid arteries appear normal with no evidence of aneurysm, stenosis, or dissection. Intracranial vertebral arteries and basilar artery appear normal with no evidence of aneurysm, stenosis or dissection. No aneurysm identified in the region of the [id number]. The anterior, middle, and posterior cerebral arteries and major branches appear intact with no evidence of aneurysm, stenosis, or dissection. No enhancing brain lesion identified. IMPRESSION: Negative CT angiography of the cervical cranial region. MR ANGIO NECK WO CLINICAL HISTORY: R arm and leg weakness, r/o acute cva. TECHNIQUE: Magnetic resonance angiography of the neck was performed using [id number] sequence CONTRAST MATERIAL: None COMPARISON: None. FINDINGS: ANTERIOR CIRCULATION: Common carotid arteries ascend with normal luminal diameters. There is no significant stenosis at the carotid bifurcation and proximal internal carotid arteries on the left side. Mild stenosis in the proximal right internal carotid artery, approximately 30 percent. Upper left internal carotid artery in the neck appears unremarkable. However, on the right side there is a mild-moderate focal stenosis in the right internal carotid artery in the skull base POSTERIOR CIRCULATION: Both vertebral arteries arise in conventional fashion off of the subclavian arteries. There is no obvious tight stenosis in the subclavian arteries proximal to the vertebral artery takeoff points. The right vertebral artery is dominant. Both vertebral arteries contribute to the formation of the basilar artery at the skull base. There is no evidence of vertebral artery thrombosis nor vertebral artery dissection. IMPRESSION: 1. Mild narrowing of the proximal right internal carotid artery just above the carotid bifurcation. 2. There is also focal narrowing in the right internal carotid artery at the skull base. 3. See separate brain MRA study which reveals abnormalities. 4. This patient requires CT angiography of the aortic arch, carotid arteries in the neck, and intracranial arteries. MR ANGIO BRAIN WO CLINICAL HISTORY: R arm and leg numbness and weakness, r/o cva TECHNIQUE: Performed with [id number] sequence COMPARISON: No exams were available for comparison FINDINGS: ANTERIOR CIRCULATION: Both internal carotid arteries are patent within the carotid canals and cavernous sinuses. supraclinoid aspects are also patent. middle cerebral arteries are patent. A1 segments exhibit significant beading in the right A1 segment with focal significant stenosis at its junction with the right anterior cerebral artery and there also appears to be significant stenosis in the right-side of the anterior communicating artery. POSTERIOR CIRCULATION: Both vertebral arteries contribute to the Greg isbell of the basilar artery at the skull base. Basilar artery ascends with normal luminal diameter slightly to the left of midline. Distally it gives off superior cerebellar arteries. Above this level terminates as patent bilateral posterior cerebral arteries. There is no evidence of aneurysm of the tip of the basilar artery. IMPRESSION: 1. Abnormal findings as described above. This patient will require CT angiography MR BRAIN WO CLINICAL HISTORY: R arm and leg weakness and numbness TECHNIQUE: Multiplanar multisequence MRI of the brain was performed. COMPARISON: No exams were available for comparison FINDINGS: CEREBRAL PARENCHYMA: There is no evidence of intracranial hemorrhage, mass effect, or shift of midline structures. There are no extra-axial fluid collections. Ventricles are not enlarged or shifted. There is no significant focal signal abnormality in the cerebellar hemispheres nor within the josaih, midbrain, and thalami. There is no abnormal signal abnormality in the periventricular white matter. There is no significant focal signal abnormality evident on diffusion imaging to suggest acute ischemic event. PITUITARY GLAND: No mass nor parasellar abnormality. No obvious abnormality in the cavernous sinuses. FLOW VOIDS: The expected flow void are noted. No evidence of obvious aneurysm nor obvious vascular malformation. PARANASAL SINUSES: There is fluid in the right sphenoid sinus. Visualized maxillary and frontal sinuses are clear. There is mucosal thickening in the single left-sided ethmoidal air cell. There is some mucosal thickening in a single left-sided ethmoidal air cell. ORBITS: No obvious findings. On the sagittal T2 weighted sequence there appears to be abnormal linear signal in the visualized upper cervical spinal cord. There is noted cerebellar tonsillar ectopia. IMPRESSION: No significant intracranial findings on this noninfused MRI scan of the brain. Possible abnormality in the visualized upper cervical spinal cord. Possibly representing artifact but I recommend cervical MRI including thin slice T2 sagittal images. There is fluid in the right sphenoid sinus. Lab Data Lab results reviewed: Yes I reviewed the patient's lab results. Labs: Laboratory Tests Range/Units 02/01/21 02/01/21 13:25 13:25 WBC (4.4-10.8) 10^3/uL 8.86 RBC (3.93-5.22) 10^6/uL 4.51 Hgb (11.2-15.7) g/dL 13.4 Hct (36.0-46.0) % 38.6 MCV (80-95) fL 85.6 MCH (27.0-33.0) pg 29.7 MCHC (32.0-36.0) % 34.7 RDW (11.7-14.6) % 12.7 Plt Count (130-400) 10^3/uL 349 MPV (8.0-11.0) fL 10.2 Immature Gran % 0.3 Neutrophils % 58.8 Lymphocytes % 32.6 Monocytes % 6.8 Eosinophils % 1.0 Basophils % 0.5 Nucleated RBC % % 0 Absolute Neutrophils (1.2-6.7) 10^3/uL 5.21 Absolute Lymphocytes (1.2-3.4) 10^3/uL 2.89 Absolute Monocytes (0.1-0.8) 10^3/uL 0.60 Absolute Eosinophils (0.0-0.7) 10^3/uL 0.09 Absolute Basophils (0.0-0.2) 10^3/uL 0.04 Sodium (136-145) mmol/L 138 Potassium (3.5-5.1) mmol/L 3.4 L Chloride (98-107) mmol/L 102 Carbon Dioxide (21.0-32.0) mmol/L 23.9 Anion Gap (3-11) mmol/L 12.1 H BUN (7-18) mg/dL 11 Creatinine (0.55-1.02) mg/dL 0.8 Estimated GFR/1.73 m2 (mL/min/1.73m2) >= 60.00 Glucose (74-106) mg/dL 101 Calcium (8.5-10.1) mg/dL 9.1 Magnesium (1.8-2.4) mg/dL 1.7 L Total Bilirubin (0.2-1.0) mg/dL 0.4 AST (15-37) U/L 15 ALT (14-59) U/L 23 Alkaline Phosphatase (46-116) U/L 42 L Troponin I (<0.06) ng/mL < 0.05 Total Protein (6.4-8.2) g/dL 7.7 Albumin (3.4-5.0) g/dL 4.0 <Storm Manjarrez MD - Last Filed: 02/01/21 17:21> Received signout on the patient from Dr. Larios. Please see her note regarding initial presentation, exam, MR imaging, plan of care. Informed by the patient that she wished to leave prior to completion of the radiology reading. She has capacity to make this decision. She will add the Plavix prescribed by Dr. Larios. She will follow-up with neurology. She will return at any time for repeat evaluation. Addendum: CT showed no large vessel stenosis or occlusion HPI <Shelly Larios DO - Last Filed: 02/02/21 20:21> General Mode of arrival: ambulatory. Date/Time Provider Initiated Documentation: 02/01/21 12:43. Limitations to Documentation: no limitations. Information obtained by: patient. HPI Narrative: Patient is a 35-year-old female with a history of hypertension on multiple blood pressure medications including atenolol, hydrochlorothiazide, losartan and verapamil who presents with several hours of right arm and leg numbness today which is now resolved. 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 She states the right leg symptoms lasted 1 hour and then resolved and the right arm symptoms lasted for hours and then resolved. She states during this time she also had dizziness and nausea. She denies any headache, blurry vision, chest pain, shortness of breath, abdominal pain, vomiting, recent illness or new change in her medications. She states she did travel to [place] in the last couple weeks and had a 3-hour drive but states she was able to get up and walk around and denies any leg pain or swelling. Related Data Home Medications Medication Instructions Recorded Confirmed omeprazole 40 mg PO BID PRN 05/25/18 02/01/21 acyclovir 400 mg PO TID PRN PRN 10/19/18 02/01/21 albuterol sulfate [ProAir HFA] 2 puff INHALATION Q6H PRN 10/19/18 02/01/21 atenolol 100 mg PO HS 10/19/18 02/01/21 cyclobenzaprine 5 mg PO QHS PRN 10/19/18 02/01/21 losartan 50 mg PO DAILY 10/19/18 02/01/21 multivitamin 1 tab PO DAILY 09/30/19 02/01/21 duloxetine 30 mg capsule,delayed 60 mg PO DAILY cap 01/23/20 02/01/21 release lidocaine 5 % topical ointment 1 applic TP QID 03/23/20 02/01/21 nicotine 21 mg/24 hr daily 1 patch TD DAILY 03/23/20 02/01/21 transdermal patch hydrochlorothiazide 25 mg tablet 25 mg PO DAILY 03/26/20 02/01/21 aspirin 81 mg PO DAILY 02/01/21 02/01/21 clopidogrel [Plavix] 75 mg PO DAILY 30 Days #30 tab 02/01/21 verapamil 180 mg PO DAILY 02/01/21 02/01/21 Previous Rx's Medication Instructions Recorded clopidogrel [Plavix] 75 mg PO DAILY 30 Days #30 tab 02/01/21 Allergies Allergy/AdvReac Type Severity Reaction Status Date / Time clindamycin Allergy Severe rash Verified 02/01/21 12:54 methotrexate Allergy Severe Anaphylaxsi Verified 02/01/21 12:54 s azithromycin [From Zithromax] Allergy Intermediate unknown Verified 02/01/21 12:54 Penicillins Allergy Intermediate Skin Rash Verified 02/01/21 12:54 Sulfa (Sulfonamide Allergy Intermediate RASH Verified 02/01/21 12:54 Antibiotics) sumatriptan [From Imitrex] Allergy Intermediate It made Verified 02/01/21 12:54 me stop breathing amoxicillin Allergy Mild Skin Rash Verified 02/01/21 12:54 enalapril AdvReac Severe resp. Verified 02/01/21 12:54 issues, chest pain bupropion [From Wellbutrin] AdvReac Intermediate chronic Verified 02/01/21 12:54 cough medroxyprogesterone AdvReac Intermediate weight gain Verified 02/01/21 12:54 [From Depo-Provera] General Stated Complaint: GenMedical KAREN: 3 Review of Systems <Shelly Larios DO - Last Filed: 02/02/21 20:21> All systems reviewed & are unremarkable except as noted in HPI and below Constitutional Constitutional: Reports as per HPI, Denies chills, Denies fever(s) and Reports weakness Eyes Eyes: Denies blurry vision ENT Ears, Nose, Mouth, and Throat: Denies dizziness, Denies sore throat and Denies throat swelling Cardiovascular Cardiovascular: Denies chest pain and Denies dyspnea Respiratory Respiratory: Denies cough and Denies dyspnea Gastrointestinal Gastrointestinal: Denies abdominal pain, Denies diarrhea and Denies vomiting Genitourinary Genitourinary: Denies hematuria and Denies dysuria Musculoskeletal Musculoskeletal: Denies back pain and Reports numbness Integumentary/Breasts Skin/Breast: Denies lesions and Denies rash Neurologic Neurologic: Denies dizziness, Denies localized weakness, Reports numbness and Reports weakness Allergic/Immunologic Allergic/Immunologic: Denies throat swelling PFSH <Shelly Larios DO - Last Filed: 02/02/21 20:21> Medical History ADHD Allergic rhinitis Boil Depression with anxiety Dysfunctional uterine bleeding GERD (gastroesophageal reflux disease) Headache Heart murmur Herpes simplex HTN (hypertension) Ingrown toenail Migraine Myalgia Preeclampsia reported by patient. PTSD (post-traumatic stress disorder) Right groin mass Sleep apnea Viral upper respiratory infection Vitamin D deficiency Weight gain Surgical History Ligation of fallopian tube Family History Mother Stroke Uncle Myocardial infarct Paternal Grandmother Stroke Father Myocardial infarct Social History Smoking/Tobacco Use Status: Current every day Tobacco Type: cigarettes Years smoked: 16 Tobacco: How many years used: 16 Counseling given: patient declined Smoking risk assessment performed?: Yes Alcohol Intake: current Alcohol Intake frequency: holidays/special occasions only Drug use: Daily Substance use type: marijuana Current gender identity: female What type of physical activity do you participate in: none Do you feel safe at home: Yes Do you feel safe in your relationship?: Yes Exam <Shelly Larios DO - Last Filed: 02/02/21 20:21> Const General: cooperative, healthy appearing and no acute distress Orientation: alert, awake and oriented x3 HENMT Head: normal to inspection Face and sinus: normal facial exam Eyes General: appearance normal, both eyes and all related structures Pupils: PERRL EOM: EOM intact bilaterally Neck Neck: normal visual inspection and No submandibular swelling Lymphatic: no lymphadenopathy noted Chest Chest: normal inspection of the chest and no tenderness Resp Effort & Inspection: normal respiratory effort and able to speak in complete sentences Auscultation: clear to auscultation bilaterally Cardio Rate: regular rate Rhythm: regular rhythm GI Inspection: normal to inspection Palpation: soft, not firm, not rigid and nontender Auscultation: normal bowel sounds Skin General skin exam: no rashes or lesions noted Neuro General: patient alert, patient awake, patient oriented x3, gait normal, moves all extremities, no meningeal signs and no focal motor deficits Cranial Nerves: CN's II-XI intact bilaterally Cognition: normal cognition Speech: speech normal Motor: muscle tone normal throughout, strength 5/5 throughout and no pronator drift Sensory Exam: no sensory deficits noted Extrem General: normal to inspection, full ROM, capillary refill normal, no calf tenderness bilaterally and no edema Psych Appearance: grossly normal Mental Status: mental status grossly normal Speech and Movement: speech and movement normal Affect: normal affect Course <Shelly Larios DO - Last Filed: 02/02/21 20:21> Vital Signs Vital signs: Vital Signs Temperature 98.8 F 02/01/21 12:47 Pulse 86 02/01/21 12:47 Respiratory Rate 02/01/21 12:47 Blood Pressure 134/67 02/01/21 12:47 Pulse Oximetry 97 02/01/21 12:47 Temperature 98.8 F 02/01/21 12:47 Temperature Source Skin 02/01/21 12:47 Pulse 86 02/01/21 12:47 Respiratory Rate 20 02/01/21 12:47 Blood Pressure 134/67 02/01/21 12:47 Blood Pressure Position Sitting 02/01/21 12:47 Pulse Oximetry 97 02/01/21 12:47 Oxygen Delivery Method Room Air 02/01/21 12:47 Oxygen Flow Rate 0 02/01/21 12:47 Pain Level 0 02/01/21 12:47 Lab/Test Results Lab/Test Results: POC- Test(urine) Negative Sign Out <Shelly Larios DO - Last Filed: 02/02/21 20:21> Sign Out Data: Sign Out Comment: Follow-up on CTA head and neck and final disposition. If imaging negative for acute findings and patient remains asymptomatic, can follow-up with neurology outpatient. Last updated by Shelly Larios DO at 02/01/21 15:51
[2021-02-01 13:40] LABS: Abs Immature Grans 0.03 10^3/uL (0.0-0.06); Absolute Basophil Count 0.04 10^3/uL (0.0-0.2); Absolute Eosinophil Count 0.09 10^3/uL (0.0-0.7); Absolute Lymphocyte Count 2.89 10^3/uL (1.2-3.4); Absolute Neutrophil Count 5.21 10^3/uL (1.2-6.7); Basophils % 0.5; HCT 38.6 % (36.0-46.0); HGB 13.4 g/dL (11.2-15.7); Immature Grans % 0.3; Lymphocytes % 32.6; MCH 29.7 pg (27.0-33.0); MCHC 34.7 % (32.0-36.0); MCV 85.6 fL (80-95); MPV 10.2 fL (8.0-11.0); Monocytes % 6.8; Neutrophils % 58.8; Nucleated RBC 0 %; Platelet Count 349 10^3/uL (130-400); RBC 4.51 10^6/uL (3.93-5.22); RDW 12.7 % (11.7-14.6); RDW-SD 39.7 fL; WBC 8.86 10^3/uL (4.4-10.8)
[2021-02-01 13:59] LABS: ALT 23 U/L (14-59); AST 15 U/L (15-37); Alkaline Phosphatase 42 U/L (46-116); Anion Gap 12.1 mmol/L (3-11); BUN 11 mg/dL (7-18); Bilirubin, Total 0.4 mg/dL (0.2-1.0); CO2 23.9 mmol/L (21.0-32.0); CREATININE 0.8 mg/dL (0.55-1.02); Calcium 9.1 mg/dL (8.5-10.1); Chloride 102 mmol/L (98-107); Glucose 101 mg/dL (74-106); Magnesium 1.7 mg/dL (1.8-2.4); Potassium 3.4 mmol/L (3.5-5.1); Sodium 138 mmol/L (136-145); Total Protein 7.7 g/dL (6.4-8.2); Troponin I < 0.05 ng/mL (<0.06)
[2021-02-01 14:45] VITALS: BP 133/82; PULSE 82; RESP 18; TEMP 36.3; O2SAT 98
--- NOTE | 2021-02-01 15:45 | DI.CT_ITS ---
Exam(s) CT BRAIN NECK CTA EXAM: CT BRAIN NECK CTA CLINICAL HISTORY: R arm and leg numbness and weakness. TECHNIQUE: Imaging Protocol: Axial CT angiography was performed with multi-slice acquisition and mu lti-planar and/or 3D reconstructions. CONTRAST MATERIAL: Intravenous: Omnipaque 350 Contrast volume:structured data in ml COMPARISON: No exams were available for comparison FINDINGS: CT angiography of the cervical cranial region was performed according to the usual protocol with intr avenous infusion of 85 cc of Omnipaque 350.. Initial noncontrast scanning of the head is unremarkable. Visualized lung apices are clear. Visualized portions of thoracic aorta and pulmonary arterial circul ation are unremarkable. There is no evidence of a cervical mass or adenopathy. The tracheal laryngeal structures appear intact. The common, internal, and external carotid arteries are within normal limits in the cervical region w ith no evidence of aneurysm, stenosis, or dissection. The vertebral arteries are unremarkable in appearance in the cervical region with no evidence of aneu rysm, stenosis, or dissection. Intracranial portions of the internal carotid arteries appear normal with no evidence of aneurysm, st enosis, or dissection. Intracranial vertebral arteries and basilar artery appear normal with no evidence of aneurysm, stenos is or dissection. No aneurysm identified in the region of the [id number]. The anterior, middle, and posterior cer ebral arteries and major branches appear intact with no evidence of aneurysm, stenosis, or dissection . No enhancing brain lesion identified. IMPRESSION: Negative CT angiography of the cervical cranial region. RADIATION DOSE DELIVERED: 1,858.36mGy.cmTotal DLP 1,858.36mGy.cm Total DLP DATA REPOSITORY: All CT scans at this facility are submitted to the National Radiology Data Registry (NRDR) Dose Index Registry (DIR) with the [employer] ([employer]). RADIATION OPTIMIZATION: All CT scans at this facility use at least one of these dose optimization te chniques: automated exposure control; mA and/or kV adjustment per patient size (includes targeted exa ms where dose is matched to clinical indication); or iterative reconstruction.
[2021-02-01] MEDS: Normal Saline - Diluent 50 ML VIAL IV (16:20)
[2021-02-01] MEDS: Omnipaque 350 MG/ML 100 ML BTL IJ (16:21)
[2021-02-01] MEDS: Normal Saline Flush 10 ML SYR IVP (16:22)
--- NOTE | 2021-02-01 17:14 | DI.VRAD_ITS ---
PROCEDURE INFORMATION: Exam: CT Angiography Head With Contrast, Arteriography Exam date and time: 02/01/2021 3:49 PM Age: 35 years old Clinical indication: Numbness TECHNIQUE: Imaging protocol: Computed tomography angiography of the head with contrast. Exam focused on the arteries. 3D rendering (Not supervised by radiologist): MIP and/or 3D reconstructed images were created by the technologist. Contrast material: OMNIPAQUE 350; Contrast volume: 85 ml; Contrast route: INTRAVENOUS (IV); COMPARISON: MR ANGIO BRAIN WO 02/01/2021 1:55 PM FINDINGS: ANTERIOR CIRCULATION: Right internal carotid artery: Unremarkable. Intracranial segment is patent with no significant stenosis. No aneurysm. Right middle cerebral artery: Unremarkable. No occlusion or significant stenosis. No aneurysm. Right anterior cerebral artery: Unremarkable. No occlusion or significant stenosis. No aneurysm. Left internal carotid artery: Unremarkable. Intracranial segment is patent with no significant stenosis. No aneurysm. Left middle cerebral artery: Unremarkable. No occlusion or significant stenosis. No aneurysm. Left anterior cerebral artery: Unremarkable. No occlusion or significant stenosis. No aneurysm. POSTERIOR CIRCULATION: Right vertebral artery: Unremarkable. No occlusion or significant stenosis. No aneurysm. Left vertebral artery: Unremarkable. No occlusion or significant stenosis. No aneurysm. Basilar artery: Unremarkable. No occlusion or significant stenosis. No aneurysm. Right posterior cerebral artery: Unremarkable. No occlusion or significant stenosis. No aneurysm. Left posterior cerebral artery: Unremarkable. No occlusion or significant stenosis. No aneurysm. Brain: No definite mass, mass effect, or midline shift. Cerebral ventricles: No ventriculomegaly. Bones/joints: Unremarkable. No acute fracture. Soft tissues: Unremarkable. Paranasal sinuses: Mucosal thickening/exudate is noted within the right sphenoid sinus. IMPRESSION: 1. No large vessel stenosis or occlusion. 2. Right sphenoid sinusitis. PROCEDURE INFORMATION: Exam: CT Angiography Neck With Contrast Exam date and time: 02/01/2021 3:49 PM Age: 35 years old Clinical indication: Numbness TECHNIQUE: Imaging protocol: Computed tomography angiography of the neck with contrast. 3D rendering (Not supervised by radiologist): MIP and/or 3D reconstructed images were created by the technologist. Contrast material: OMNIPAQUE 350; Contrast volume: 85 ml; Contrast route: INTRAVENOUS (IV); COMPARISON: MR ANGIO BRAIN WO 02/01/2021 1:55 PM FINDINGS: Right common carotid artery: No stenosis. No dissection or occlusion. Right internal carotid artery: No stenosis of the extracranial segment. No dissection or occlusion. Right external carotid artery: No occlusion or stenosis of the origin. Left common carotid artery: No stenosis. No dissection or occlusion. Left internal carotid artery: No stenosis of the extracranial segment. No dissection or occlusion. Left external carotid artery: No occlusion or stenosis of the origin. Right vertebral artery: No stenosis. No dissection or occlusion. Left vertebral artery: No stenosis. No dissection or occlusion. Soft tissues: Normal. No significant soft tissue swelling. Bones/joints: No acute fracture. IMPRESSION: No significant carotid or vertebral artery stenosis or occlusion. REFERENCES: NASCET CRITERIA. The degree of internal carotid artery stenosis is based on NASCET criteria. Normal is no stenosis. Mild is less than 50% stenosis. Moderate is 50-69% stenosis. Severe is 70% to 99% stenosis. Total occlusion is no detectable patent lumen. Dictated and Authenticated by: Antonio Gomez MD. Ordering:TONYA Bravo MD
== END 2021-02-01 16:55 | disposition left against medical advice (07) ==
PROVIDERS: Physician Assistant; Emergency Provider Emergency Medicine; PCP Family Medicine
DX: R20.2 Paresthesia of skin (principal); R42 Dizziness and giddiness; R11.0 Nausea; I65.21 Occlusion and stenosis of right carotid artery; Z53.29 Procedure and treatment not carried out because of patient's decision for other reasons; F17.210 Nicotine dependence, cigarettes, uncomplicated
CPT/HCPCS: 36415; 70496; 70498; 70544; 70547; 80053; 81025; 93005; 96361; 96374; 99285; 70551; 83735; 84484; 85025; 93010; J2060; J3490

== ENCOUNTER 2021-03-12 11:30 | Outpatient (REF) | payer OTHER, SELFPAY ==
--- NOTE | 2021-03-12 10:30 | PAPFT_PTH ---
PATIENT: Shraddha Fraga LOC: [facility]#:[id number] AGE/SX: 35/F ROOM: RE03/12/[address]: Rosa Steve V : 1985 BED: DIS: 03/12/2021 SPEC #: [id number] RECD: 03/12/21 17:12 STATUS: LEA REDanielle #: [id number] MISSY: 03/12/21 10:[address]: Rosa Steve V DEPT: [facility] Cytology RECD BY: Beatrice Alarcon Tissues: 1 - CX/ENDOCX FOR PAP SMEARS Procedures: PAP THIN PREP/UVM Screening HPV DNA PROBE Comments: [id number] (CHLAMYDIA/GC)
[2021-03-16 15:41] LABS: Chlamydia Result Negative (Negative); GC Result Negative (Negative)
== END 2021-03-12 11:31 | disposition home or self-care (01) ==
LOC: NCHCN 11:30
PROVIDERS: PCP Family Medicine; Visit Provider Family Medicine
DX: Z12.4 Encounter for screening for malignant neoplasm of cervix (principal); Z01.419 Encounter for gynecological examination (general) (routine) without abnormal findings; Z11.3 Encounter for screening for infections with a predominantly sexual mode of transmission; Z11.51 Encounter for screening for human papillomavirus (HPV)
CPT/HCPCS: 87491; 87591; 88142; 87624

== ENCOUNTER 2021-05-04 17:07 | Outpatient (REF) | payer OTHER, SELFPAY ==
[2021-05-05 20:44] LABS: COVID-19 RT-PCR UVMMC Result Negative (Negative)
== END 2021-05-04 17:08 | disposition home or self-care (01) ==
LOC: NCHCN 17:07
PROVIDERS: PCP Family Medicine; Visit Provider Nurse Practitioner Family
DX: Z20.822 Contact with and (suspected) exposure to COVID-19 (principal); J06.9 Acute upper respiratory infection, unspecified
CPT/HCPCS: U0003

== ENCOUNTER 2021-07-17 12:06 | Outpatient (REF) | payer SELFPAY ==
[2021-07-18 19:10] LABS: COVID-19 RT-PCR UVMMC Result Negative (Negative)
== END 2021-07-17 12:07 | disposition home or self-care (01) ==
LOC: NCHCN 12:06
PROVIDERS: PCP Family Medicine; Visit Provider Nurse Practitioner Family
DX: Z20.822 Contact with and (suspected) exposure to COVID-19 (principal); J06.9 Acute upper respiratory infection, unspecified
CPT/HCPCS: U0003

== ENCOUNTER 2021-08-02 02:23 | Outpatient (CLI) | payer BC, SELFPAY ==
--- NOTE | 2021-08-02 13:30 | DI.RAD_ITS ---
Exam(s) XR CERVICAL SPINE COMP 4-5V EXAM: XR CERVICAL SPINE COMP 4-5V CLINICAL HISTORY: PARESTHESIA, R20.2. TECHNIQUE: 2D digital imaging was performed. COMPARISON: CR CERVICAL SP. LIMITED (TRAUMA) from 08/31/2013 FINDINGS: No evidence of fracture, listhesis, nor offset of the spinal laminar line. There is now moderate disc space narrowing at C6-7 level, not previously present in 2014. On the obl ique views there is a left-sided Luschka joint osteophyte at this level. None on the opposite-right side. No cervical ribs. No obvious facet arthropathy. IMPRESSION: Compared to 2013 there is now evidence of degenerative disc disease at C6-7 level and there is also a left-sided Luschka joint osteophyte at this level. DATA REPOSITORY: RADIATION DOSE DELIVERED:
== END 2021-08-02 02:43 ==
PROVIDERS: PCP Family Medicine; Visit Provider Family Medicine
DX: R20.2 Paresthesia of skin (principal); M50.323 Other cervical disc degeneration at C6-C7 level; M25.78 Osteophyte, vertebrae
CPT/HCPCS: 72050

== ENCOUNTER 2021-09-17 14:03 | Emergency (ER) | payer BC, SELFPAY ==
[2021-09-17 14:12] VITALS: BP 152/90; PULSE 83; RESP 16; TEMP 37; O2SAT 98
--- NOTE | 2021-09-17 14:47 | DI.CT_ITS ---
Exam(s) CT ABDOMEN PELVIS W EXAM: CT ABDOMEN PELVIS W CLINICAL HISTORY: RLQ pain TECHNIQUE: Imaging Protocol: Axial computed tomography images with coronal and sagittal reformatted images were created and reviewed CONTRAST MATERIAL: Intravenous: Omnipaque 350 Contrast volume:60 mL Oral: No COMPARISON: CT CT BRAIN NECK CTA from 02/01/2021 FINDINGS: ABDOMEN: Lung Bases: Normal where visualized. Liver: There is diffuse decreased attenuation of the liver consistent with fatty infiltration. No me asurable mass. Portal, Superior Mesenteric, and Splenic Veins: Unremarkable. Gallbladder and Biliary Tract: No radiodense calculus or dilation. Pancreas: Normal density, no abnormal calcifications or inflammatory process. Spleen: Normal. Adrenals: No masses seen. Kidneys: Normal size, contour and axis. No radiodense stones or obstructive uropathy. No masses seen. Abdominal Aorta: Abdominal portion non-dilated. Atherosclerosis. Bowel: No obstruction or bowel wall thickening. Appendix is unremarkable. Peritoneal Cavity: No ascites, collection or mesenteric inflammatory response. No free air. Lymph Nodes: Within normal limits. Bones: Within normal limits for the patient's age. There is L5 spondylolysis but no significant spon dylolisthesis. Soft Tissues: Unremarkable. PELVIS: Bladder: Symmetric distention, no gross wall thickening. Reproductive Organs: Bilateral ovarian cysts. The largest on the right measures 2.9 cm. The largest on the left measures 1.8 cm. There is a 1.2 cm cystic lesion in the region of the lateral wall of t he vagina which may represent a Bartholin's cyst. It lies below the level of the symphysis pubis. A bscess cannot be entirely excluded. Please correlate clinically. Lymph Nodes: Within normal limits. Bones: Within normal limits for the patient's age. IMPRESSION: 1. Normal appendix. 2. Bilateral ovarian cysts. The largest is on the right and measures 2.9 cm. 3. No acute abdominal or pelvic process. 4. Results of this exam have been verbally communicated with provider. RADIATION DOSE DELIVERED: 724.49mGy.cm Total DLP DATA REPOSITORY: All CT scans at this facility are submitted to the National Radiology Data Registry (NRDR) Dose Index Registry (DIR) with the [employer] ([employer]). RADIATION OPTIMIZATION: All CT scans at this facility use at least one of these dose optimization te chniques: automated exposure control; mA and/or kV adjustment per patient size (includes targeted exa ms where dose is matched to clinical indication); or iterative reconstruction.
--- NOTE | 2021-09-17 15:03 | W.ED.GENAD ---
Discharge Plan Disposition Patient Disposition: HOME Condition: Stable Discharge Details Clinical Impression: Hypokalemia, Ovarian cyst, Abdominal pain, RLQ Primary Care Provider: Rosa Steve V ED Provider: Ann Bonilla Home Meds and New Rx's Prescriptions: New potassium chloride 20 mEq tablet extended release 20 meq PO DAILY Qty: 7 0RF Continued multivitamin Tablet 1 tab PO DAILY 0RF lidocaine 5 % ointment 1 applic TP QID PRN0RF buspirone 10 mg tablet 10 mg PO BID PRN0RF mometasone [Nasonex] 50 mcg/actuation spray,non-aerosol 2 spray intranasal DAILY PRN0RF Rx Instructions: administer into each nostril Nicotrol 10 mg cartridge 1 inh inhalation 4-6XD PRN0RF cholecalciferol (vitamin D3) 50 mcg (2,000 unit) capsule 50 mcg PO DAILY 0RF chlorthalidone 25 mg tablet 25 mg PO DAILY 0RF omeprazole 40 mg Capsule,Delayed Release(Dr/Ec) 40 mg PO BID PRN0RF losartan 50 mg Tablet 50 mg PO DAILY 0RF acyclovir 400 mg Tablet 400 mg PO TID PRN PRN0RF albuterol sulfate [ProAir HFA] 90 mcg/actuation Hfa Aerosol Inhaler 2 puff INHALATION Q6H PRN0RF cyclobenzaprine 5 mg Tablet 5 mg PO QHS PRN0RF verapamil 180 mg tablet extended release 180 mg PO DAILY 0RF Label Comments: TAKE ONE TABLET BY MOUTH EVERY DAY duloxetine 60 mg capsule,delayed release(DR/EC) 60 mg PO BID 0RF Label Comments: TAKE 1 CAPSULE ORALLY IN MORNING AND AT NIGHT atenolol 100 mg tablet 100 mg PO QPM 0RF Label Comments: TAKE ONE TABLET BY MOUTH EVERY DAY Discharge Instructions Instructions: Ovarian Cyst (ED), Hypokalemia (ED), Abdominal Pain (ED) Additional Instructions: take zofran as needed for nausea and vomiting take potassium daily f/u for US of your pelvis return earlier with new or worsening complaints Referrals: Rosa Steve MD [Primary Care Provider] - Discharge Data Discharge Date/Time-TO BE ENTERED AT DEPARTURE: 09/17/21 17:18 Medical Decision Making <Vinnie Spicer NP - Last Filed: 09/22/21 08:48> Patient presenting to the emergency department for chief complaint of abdominal pain. She does state a fall down 3 stairs 1 week ago with continued discomfort but this morning she started having more focal right lower quadrant pain with an episode of emesis. She does state some mild to moderate rib pain on the right anterior. Physical exam shows positive McBurney's point tenderness, negative Fritz sign, and anterior lateral rib tenderness on the right side. Plan to do labs and CT imaging. We will see if CT imaging includes enough of the ribs to prevent further rib studies as I doubt pneumo or hemothorax given otherwise benign exam. Will give patient Toradol pending results. Lab Data Result diagrams: 09/17/21 15:15 09/17/21 15:15 <LAURA Elkins - Last Filed: 09/17/21 19:10> [facility] Narrative Medical decision making narrative: Care was accepted from Ren Spicer, nurse practitioner Patient appears well, her CT does not show acute abnormality, she has bilateral ovarian cyst with a larger one on the right, there is no evidence of torsion with a 2.9 cm, ultrasound ordered for the outpatient setting to further evaluate No visible sign of trauma I did evaluate and there is no evidence of Bartholin cyst Diagnostic labs show hypokalemia, patient was supplemented with 40 mEq of potassium and sent home with a prescription for potassium She was told to follow-up with her PCP for further outpatient evaluation and to return earlier should she have new or worsening complaints Lab Data Labs: Lab Results 09/17/21 09/17/21 09/17/21 Range/Units 15:12 15:15 15:15 WBC 12.38 H (4.4-10.8) 10^3/uL RBC 4.38 (3.93-5.22) 10^6/uL Hgb 13.6 (11.2-15.7) g/dL Hct 38.6 (36.0-46.0) % MCV 88.1 (80-95) fL MCH 31.1 (27.0-33.0) pg MCHC 35.2 (32.0-36.0) % RDW 12.3 (11.7-14.6) % Plt Count 365 (130-400) 10^3/uL MPV 9.5 (8.0-11.0) fL Immature Gran % 0.4 Neutrophils % 60.9 Lymphocytes % 31.3 Monocytes % 6.1 Eosinophils % 1.0 Basophils % 0.3 Nucleated RBC % 0 % Absolute Neutrophils 7.54 H (1.2-6.7) 10^3/uL Absolute Lymphocytes 3.87 H (1.2-3.4) 10^3/uL Absolute Monocytes 0.76 (0.1-0.8) 10^3/uL Absolute Eosinophils 0.12 (0.0-0.7) 10^3/uL Absolute Basophils 0.04 (0.0-0.2) 10^3/uL Sodium 136 (136-145) mmol/L Potassium 2.9 L (3.5-5.1) mmol/L Chloride 99 (98-107) mmol/L Carbon Dioxide 27.5 (21.0-32.0) mmol/L Anion Gap 9.5 (3-11) mmol/L BUN 12 (7-18) mg/dL Creatinine 0.8 (0.55-1.02) mg/dL Estimated GFR/1.73 m2 >= 60.00 (mL/min/1.73m2) Glucose 92 (74-106) mg/dL Calcium 9.2 (8.5-10.1) mg/dL Magnesium 1.8 (1.8-2.4) mg/dL Total Bilirubin 0.2 (0.2-1.0) mg/dL AST 15 (15-37) U/L ALT 29 (14-59) U/L Alkaline Phosphatase 46 (46-116) U/L Total Protein 7.7 (6.4-8.2) g/dL Albumin 4.0 (3.4-5.0) g/dL Urine Color Yellow (Yellow) Urine Clarity Clear (Clear) Urine pH 6.0 (5-8) Ur Specific [place] 1.015 (1.005-1.025) Urine Protein Negative (Negative) mg/dL Urine Ketones Negative (Negative) mg/dL Urine Blood Negative (Negative) Urine Nitrite Negative (Negative) Urine Bilirubin Negative (Negative) Urine Urobilinogen 0.2 (Up TO 0.2) EU/dL Ur Leukocyte Esterase Negative (Negative) Urine Glucose Negative (Negative) mg/dL HPI <Vinnie Spicer NP - Last Filed: 09/22/21 08:48> General Mode of arrival: ambulatory. Date/Time Provider Initiated Documentation: 09/17/21 14:03. Limitations to Documentation: no limitations. Information obtained by: patient. History of Present Illness 36 year old F presents to the emergency department with the chief complaint of fall with abd pain, described as moderate, with intensity rated at 9. Quality is described as sharp, and is localized to the abdomen. Patient reports no radiation. Patient started experiencing this day(s) (2) and it has been constant. improves with No relieving factors improve symptom(s), No exacerbating factors reported . Patient notes no other symptoms.. Related Data Home Medications Medication Instructions Recorded Confirmed omeprazole 40 mg capsule,delayed 40 mg PO BID PRN 05/25/18 09/17/21 release acyclovir 400 mg tablet 400 mg PO TID PRN PRN 10/19/18 09/17/21 albuterol sulfate 90 mcg/actuation 2 puff INHALATION Q6H PRN 10/19/18 09/17/21 aerosol inhaler (ProAir HFA) cyclobenzaprine 5 mg tablet 5 mg PO QHS PRN 10/19/18 09/17/21 losartan 50 mg tablet 50 mg PO DAILY 10/19/18 09/17/21 multivitamin 1 tab PO DAILY 09/30/19 09/17/21 lidocaine 5 % topical ointment 1 applic TP QID PRN 03/23/20 09/17/21 verapamil 180 mg tablet,extended 180 mg PO DAILY 02/01/21 09/17/21 release buspirone 10 mg tablet 10 mg PO BID PRN 05/26/21 09/17/21 chlorthalidone 25 mg tablet 25 mg PO DAILY 05/26/21 09/17/21 cholecalciferol (vitamin D3) 50 50 mcg PO DAILY 05/26/21 09/17/21 mcg (2,000 unit) capsule mometasone 50 mcg/actuation nasal 2 spray INTRANASAL DAILY PRN 05/26/21 09/17/21 spray (Nasonex) nicotine 10 mg inhalation 1 inh INHALATION 4-6XD PRN 05/26/21 cartridge (Nicotrol) atenolol 100 mg tablet 100 mg PO QPM 09/17/21 09/17/21 duloxetine 60 mg capsule,delayed 60 mg PO BID 09/17/21 09/17/21 release potassium chloride 20 mEq 20 meq PO DAILY #7 tab 09/17/21 tablet,extended release Previous Rx's Medication Instructions Recorded potassium chloride 20 mEq 20 meq PO DAILY #7 tab 09/17/21 tablet,extended release Allergies Allergy/AdvReac Type Severity Reaction Status Date / Time clindamycin Allergy Severe rash Verified 09/17/21 14:47 methotrexate Allergy Severe Anaphylaxsi Verified 09/17/21 14:47 s azithromycin [From Zithromax] Allergy Intermediate unknown Verified 09/17/21 14:47 Penicillins Allergy Intermediate Skin Rash Verified 09/17/21 14:47 Sulfa (Sulfonamide Allergy Intermediate RASH Verified 09/17/21 14:47 Antibiotics) sumatriptan [From Imitrex] Allergy Intermediate It made Verified 09/17/21 14:47 me stop breathing amoxicillin Allergy Mild Skin Rash Verified 09/17/21 14:47 enalapril AdvReac Severe resp. Verified 09/17/21 14:47 issues, chest pain bupropion [From Wellbutrin] AdvReac Intermediate chronic Verified 09/17/21 14:47 cough medroxyprogesterone AdvReac Intermediate weight gain Verified 09/17/21 14:47 [From Depo-Provera] General Stated Complaint: Abd Prob KAREN: 3 Review of Systems <Vinnie Spicer NP - Last Filed: 09/22/21 08:48> Constitutional Constitutional: Denies chills, Denies fever(s) and Denies poor appetite ENT Ears, Nose, Mouth, and Throat: Denies neck pain Cardiovascular Cardiovascular: Denies chest pain, Denies rapid heart rate and Denies dyspnea Respiratory Respiratory: Denies cough, Denies pain with cough and Denies dyspnea Gastrointestinal Gastrointestinal: Reports as per HPI, Reports abdominal pain, Denies melena, Denies change in bowel habits, Denies constipation, Denies diarrhea and Reports vomiting (once this AM) Genitourinary Genitourinary: Denies hematuria, Denies urinary incontinence, Denies urinary hesitancy and Denies urinary urgency Musculoskeletal Musculoskeletal: Denies back pain, Denies neck pain and Denies radiating pain into limb Integumentary/Breasts Skin/Breast: Denies rash Neurologic Neurologic: Denies paresthesias PFSH <Vinnie Spicer NP - Last Filed: 09/22/21 08:48> All Active Problems (Updated 09/17/21 @ 17:05 by LAURA Elkins) Hypokalemia (Acute) Ovarian cyst (Acute) Abdominal pain, RLQ (Acute) Preseptal cellulitis (Acute) Muscle strain (Acute) Hx of inguinal hernia repair (Acute) Paresthesia (Acute) Ethmoid sinusitis (Acute) Paresthesia of right arm (Acute) Paresthesia of right leg (Acute) Postop check (Acute) Groin cyst (Acute) Direct inguinal hernia of right side (Acute) Right groin mass (Acute) Boil (Acute) Systolic murmur (Acute) Hypertension (Chronic) Medical History ADHD Allergic rhinitis Depression with anxiety Dysfunctional uterine bleeding GERD (gastroesophageal reflux disease) Headache Heart murmur Herpes simplex HTN (hypertension) Ingrown toenail Migraine Myalgia Preeclampsia reported by patient. PTSD (post-traumatic stress disorder) Sleep apnea Viral upper respiratory infection Vitamin D deficiency Weight gain Surgical History Ligation of fallopian tube Family History Mother Stroke Uncle Myocardial infarct Paternal Grandmother Stroke Father Myocardial infarct Social History Smoking/Tobacco Use Status: Current every day Tobacco Type: cigarettes Years smoked: 16 Tobacco: How many years used: 16 Counseling given: patient declined Smoking risk assessment performed?: Yes Alcohol Intake: current Alcohol Intake frequency: holidays/special occasions only Drug use: Daily Substance use type: marijuana Current gender identity: female What type of physical activity do you participate in: none Do you feel safe at home: Yes Do you feel safe in your relationship?: Yes Exam <Vinnie Spicer NP - Last Filed: 09/22/21 08:48> Const General: cooperative Orientation: alert, awake and oriented x3 Chest Chest: tenderness rib right anterior-axillary line involving the 7th rib, involving the 8th rib and involving the 9th rib Resp Effort & Inspection: normal respiratory effort and able to speak in complete sentences Auscultation: clear to auscultation bilaterally Cardio Rate: regular rate Rhythm: regular rhythm Heart Sounds: S1 normal and S2 normal GI Palpation: soft, no hepatosplenomegaly, not firm, no guarding, no masses, no pulsatile masses, not rigid, no splenomegaly and tender in the RLQ and at McBurney's point; Negative for Fritz's sign negative, psoas sign negative and Rovsing's sign negative Auscultation: normal bowel sounds Back/Spine/Pelvis Back: no CVA tenderness Neuro General: patient alert, patient awake, patient oriented x3, gait normal and moves all extremities Course <Vinnie Spicer NP - Last Filed: 09/22/21 08:48> Vital Signs Vital signs: Vital Signs Temperature 37.0 C 09/17/21 14:12 Pulse 83 09/17/21 14:12 Respiratory Rate 16 09/17/21 14:12 Blood Pressure 152/90 H 09/17/21 14:12 Pulse Oximetry 98 09/17/21 14:12 Temperature 37.0 C 09/17/21 14:12 Temperature Source Skin 09/17/21 14:12 Pulse 83 09/17/21 14:12 Respiratory Rate 16 09/17/21 14:12 Respiratory Effort 09/17/21 14:17 Blood Pressure 152/90 H 09/17/21 14:12 Blood Pressure Position Standing 09/17/21 14:12 Pulse Oximetry 98 09/17/21 14:12 Oxygen Delivery Method Room Air 09/17/21 14:12 Oxygen Flow Rate 0 09/17/21 14:12 Pain Level 9 09/17/21 14:32 Sign Out <Vinnie Spicer NP - Last Filed: 09/22/21 08:48> Sign Out Data: Sign Out Comment: Patient pending CT report. Patient signed out to Ann Mendes updated by Vinnie Spicer NP at 09/17/21 16:03
[2021-09-17] MEDS: Omnipaque 350 MG/ML 100 ML BTL IJ (15:25)
[2021-09-17 15:26] LABS: Abs Immature Grans 0.05 10^3/uL (0.0-0.06); Absolute Basophil Count 0.04 10^3/uL (0.0-0.2); Absolute Eosinophil Count 0.12 10^3/uL (0.0-0.7); Absolute Lymphocyte Count 3.87 10^3/uL (1.2-3.4); Basophils % 0.3; HCT 38.6 % (36.0-46.0); HGB 13.6 g/dL (11.2-15.7); Immature Grans % 0.4; Lymphocytes % 31.3; MCH 31.1 pg (27.0-33.0); MCHC 35.2 % (32.0-36.0); MCV 88.1 fL (80-95); MPV 9.5 fL (8.0-11.0); Monocytes % 6.1; Neutrophils % 60.9; Nucleated RBC 0 %; Platelet Count 365 10^3/uL (130-400); RBC 4.38 10^6/uL (3.93-5.22); RDW 12.3 % (11.7-14.6); RDW-SD 39.5 fL; WBC 12.38 10^3/uL (4.4-10.8)
[2021-09-17 15:27] LABS: Absolute Monocyte Count 0.76 10^3/uL (0.1-0.8); Absolute Neutrophil Count 7.54 10^3/uL (1.2-6.7)
[2021-09-17] MEDS: Ketorolac 15 MG/ML VIAL IVP (15:27)
[2021-09-17] MEDS: Normal Saline Flush 10 ML SYR IVP (15:28)
[2021-09-17 15:30] LABS: Bilirubin Negative (Negative); Blood Negative (Negative); Clarity Clear (Clear); Glucose Negative (Negative); Ketones Negative (Negative); Leukocyte Esterase Negative (Negative); Nitrite Negative (Negative); Specific Gravity 1.015 (1.005-1.025); Urobilinogen 0.2 EU/dL (Up TO 0.2)
[2021-09-17 15:38] LABS: ALT 29 U/L (14-59); AST 15 U/L (15-37); Alkaline Phosphatase 46 U/L (46-116); Anion Gap 9.5 mmol/L (3-11); BUN 12 mg/dL (7-18); Bilirubin, Total 0.2 mg/dL (0.2-1.0); CO2 27.5 mmol/L (21.0-32.0); CREATININE 0.8 mg/dL (0.55-1.02); Calcium 9.2 mg/dL (8.5-10.1); Chloride 99 mmol/L (98-107); Glucose 92 mg/dL (74-106); Magnesium 1.8 mg/dL (1.8-2.4); Sodium 136 mmol/L (136-145); Total Protein 7.7 g/dL (6.4-8.2)
[2021-09-17 15:40] LABS: Potassium 2.9 mmol/L (3.5-5.1)
--- NOTE | 2021-09-17 17:01 | NUR.NOTE ---
Nursing Note: Pt info faxed to Outpatient [facility] for ultrasound SOFI. [place], ED
[2021-09-17] MEDS: Potassium Chloride 20 MEQ TABCR 40 MEQ PO (17:02)
== END 2021-09-17 17:18 | disposition home or self-care (01) ==
PROVIDERS: Nurse Practitioner Family; Emergency Provider Physician Assistant; PCP Family Medicine
DX: E87.6 Hypokalemia (principal); N83.291 Other ovarian cyst, right side; N83.292 Other ovarian cyst, left side; R10.31 Right lower quadrant pain
CPT/HCPCS: 36415; 80053; 81025; 96374; 99285; 74177; 81003; 83735; 85025; 99284; J1885; J3490

== ENCOUNTER 2021-09-28 14:49 | Outpatient (REF) | payer BC, SELFPAY | END 2021-09-28 14:50 | disposition home or self-care (01) | LOC: NCHCN 14:49 | PROVIDERS: PCP Family Medicine; Visit Provider Family Medicine | DX: R30.0 Dysuria (principal) | CPT/HCPCS: 87086 ==

== ENCOUNTER 2021-10-27 16:05 | Outpatient (REF) | payer BC, SELFPAY ==
[2021-10-29 13:11] LABS: COVID-19 RT-PCR UVMMC Result Negative (Negative)
== END 2021-10-27 16:06 | disposition home or self-care (01) ==
LOC: NCHCN 16:05
PROVIDERS: PCP Family Medicine; Visit Provider Physician Assistant Medical
DX: Z20.822 Contact with and (suspected) exposure to COVID-19 (principal); J34.89 Other specified disorders of nose and nasal sinuses
CPT/HCPCS: U0003

== ENCOUNTER 2022-03-09 11:50 | Outpatient (REF) | payer BC, SELFPAY ==
[2022-03-09 15:14] LABS: Abs Immature Grans 0.07 10^3/uL (0.0-0.06); Absolute Basophil Count 0.05 10^3/uL (0.0-0.2); Absolute Eosinophil Count 0.18 10^3/uL (0.0-0.7); Absolute Monocyte Count 0.81 10^3/uL (0.1-0.8); Absolute Neutrophil Count 6.72 10^3/uL (1.2-6.7); Basophils % 0.4; Eosinophils % 1.5; HCT 39.4 % (36.0-46.0); HGB 13.3 g/dL (11.2-15.7); Immature Grans % 0.6; Lymphocytes % 33.3; MCH 29.5 pg (27.0-33.0); MCHC 33.8 % (32.0-36.0); MCV 87 fL (80-95); MPV 10.6 fL (8.0-11.0); Monocytes % 6.9; Neutrophils % 57.3; Platelet Count 400 10^3/uL (130-400); RBC 4.51 10^6/uL (3.93-5.22); RDW 12.1 % (11.7-14.6); RDW-SD 38.8 fL; WBC 11.72 10^3/uL (4.4-10.8)
[2022-03-09 15:18] LABS: ESR 12 mm/hr (0-20)
[2022-03-09 15:31] LABS: ALT 34 U/L (14-59); AST 21 U/L (15-37); Albumin 3.9 g/dL (3.4-5.0); Alkaline Phosphatase 41 U/L (46-116); Anion Gap 8.4 mmol/L (3-11); BUN 13 mg/dL (7-18); Bilirubin, Total 0.3 mg/dL (0.2-1.0); CO2 26.6 mmol/L (21.0-32.0); CREATININE 0.8 mg/dL (0.55-1.02); Calcium 9.5 mg/dL (8.5-10.1); Chloride 99 mmol/L (98-107); Glucose 97 mg/dL (74-106); Potassium 3.8 mmol/L (3.5-5.1); Sodium 134 mmol/L (136-145); Total Protein 7.6 g/dL (6.4-8.2)
== END 2022-03-09 11:51 | disposition home or self-care (01) ==
LOC: NCHCN 11:50
PROVIDERS: PCP Family Medicine; Visit Provider Physician Assistant Medical
DX: R19.7 Diarrhea, unspecified (principal)
CPT/HCPCS: 80053; 85652; 85025

== ENCOUNTER 2022-04-14 17:26 | Outpatient (REF) | payer BC, SELFPAY ==
[2022-04-16 12:08] LABS: COVID-19 RT-PCR UVMMC Result Negative (Negative)
== END 2022-04-14 17:27 | disposition home or self-care (01) ==
LOC: LBN 17:26
PROVIDERS: PCP Family Medicine; Visit Provider Nurse Practitioner Family
DX: Z20.822 Contact with and (suspected) exposure to COVID-19 (principal)
CPT/HCPCS: U0003

== ENCOUNTER 2022-09-20 18:54 | Outpatient (REF) | payer BC, SELFPAY ==
[2022-09-20 19:12] LABS: Anion Gap 9.5 mmol/L (3-11); BUN 16 mg/dL (7-18); CO2 26.5 mmol/L (21.0-32.0); CREATININE 1.1 mg/dL (0.55-1.02); Calcium 8.9 mg/dL (8.5-10.1); Chloride 102 mmol/L (98-107); Estimated GFR 66.78 (mL/min/1.73m2); Glucose 96 mg/dL (74-106); Potassium 3.3 mmol/L (3.5-5.1); Sodium 138 mmol/L (136-145)
[2022-09-20 19:28] LABS: Hemoglobin A1C 5.9 % (<5.7)
== END 2022-09-20 18:55 | disposition home or self-care (01) ==
LOC: NCHCN 18:54
PROVIDERS: PCP Family Medicine; Visit Provider Family Medicine
DX: Z00.00 Encounter for general adult medical examination without abnormal findings (principal); Z13.1 Encounter for screening for diabetes mellitus; I10 Essential (primary) hypertension
CPT/HCPCS: 80048; 83036

== ENCOUNTER 2022-10-18 11:58 | Emergency (ER) | payer BC, SELFPAY ==
[2022-10-18 12:02] VITALS: BP 116/74; PULSE 99; RESP 16; TEMP 37.1; O2SAT 99
[2022-10-18 12:41] LABS: Abs Immature Grans 0.08 10^3/uL (0.0-0.06); Absolute Eosinophil Count 0.11 10^3/uL (0.0-0.7); Absolute Monocyte Count 0.48 10^3/uL (0.1-0.8); Absolute Neutrophil Count 14.48 10^3/uL (1.2-6.7); Basophils % 0.3; Eosinophils % 0.7; HCT 43.1 % (36.0-46.0); HGB 14.7 g/dL (11.2-15.7); Immature Grans % 0.5; Lymphocytes % 4.4; MCH 30.2 pg (27.0-33.0); MCHC 34.1 % (32.0-36.0); MCV 89 fL (80-95); MPV 9.6 fL (8.0-11.0); Neutrophils % 91.1; Platelet Count 383 10^3/uL (130-400); RBC 4.87 10^6/uL (3.93-5.22); RDW 12.4 % (11.7-14.6); RDW-SD 40.7 fL; WBC 15.89 10^3/uL (4.4-10.8)
--- NOTE | 2022-10-18 12:44 | ED.GENADUL_ITS ---
Discharge Plan Disposition Patient Disposition: Home Discharge Details Clinical Impression: Nausea vomiting and diarrhea, Hypomagnesemia Primary Care Provider: Rosa Steve V ED Provider: Ann Bonilla Home Meds and New Rx's Prescriptions: New magnesium gluconate 27.5 mg magne- sium (500 mg) tablet 27.5 mg PO BID Qty: 30 0RF promethazine 25 mg tablet 25 mg PO Q6H PRNQty: 14 0RF No Action duloxetine [Cymbalta] 60 mg capsule,delayed release(DR/EC) 60 mg PO BID doxycycline hyclate 100 mg capsule 100 mg PO BID diazepam 5 mg tablet 5 mg PO PRN aspirin [Adult Aspirin Regimen] 81 mg tablet,delayed release (DR/EC) 81 mg PO DAILY fluticasone propionate [Flonase Allergy Relief] 50 mcg/actuation spray,suspension 2 spray intranasal DAILY Qty: 16 12RF Rx Instructions: administer into each nostril multivitamin Tablet 1 tab PO DAILY lidocaine 5 % ointment 1 applic TP QID PRN buspirone 10 mg tablet 10 mg PO BID PRN mometasone [Nasonex] 50 mcg/actuation spray,non-aerosol 2 spray intranasal DAILY PRN Rx Instructions: administer into each nostril Nicotrol 10 mg cartridge 1 inh inhalation 4-6XD PRN cholecalciferol (vitamin D3) 50 mcg (2,000 unit) capsule 50 mcg PO DAILY chlorthalidone 25 mg tablet 25 mg PO DAILY omeprazole 40 mg Capsule,Delayed Release(Dr/Ec) 40 mg PO BID PRN losartan 50 mg Tablet 50 mg PO DAILY acyclovir 400 mg Tablet 400 mg PO TID PRN PRN albuterol sulfate [ProAir HFA] 90 mcg/actuation Hfa Aerosol Inhaler 2 puff INHALATION Q6H PRN cyclobenzaprine 5 mg Tablet 5 mg PO QHS PRN verapamil 180 mg tablet extended release 180 mg PO DAILY Patient Comments: TAKE ONE TABLET BY MOUTH EVERY DAY duloxetine 60 mg capsule,delayed release(DR/EC) 60 mg PO BID Patient Comments: TAKE 1 CAPSULE ORALLY IN MORNING AND AT NIGHT atenolol 100 mg tablet 100 mg PO QPM Patient Comments: TAKE ONE TABLET BY MOUTH EVERY DAY potassium chloride 20 mEq tablet extended release 20 meq PO DAILY Qty: 7 0RF Discharge Instructions Instructions: Acute Nausea and Vomiting (ED), Hypomagnesemia (ED) Additional Instructions: Take phenergan as needed for nausea and vomiting Continue this medication start taking 0 Continue stool sample to return earlier should you have new complaints or worsening symptoms Referrals: Rosa Steve MD [Primary Care Provider] - Discharge Data Discharge Date/Time-TO BE ENTERED AT DEPARTURE: 10/18/22 14:37 Medical Decision Making This 37-year-old female presents with nausea vomiting diarrhea, concern for dehydration, no significant abdominal tenderness, no indication for imaging, labs are ordered, leukocytosis, 15,000, likely secondary to vomiting and il lness, glucose 120, the remainder of labs do not show significant acute abnormality, red blood cells 3-5, encouraged to have this rechecked by primary care physician Feeling marked improvement after antiemetics and fluids with monitoring Able to tolerate p.o. challenge Antiemetics for home and close outpatient reassessment Stool sample for culture sent home with patient for return Discharged home in stable condition with stable vitals, nontender abdominal exam, given low threshold to return should she have new or worsening complaints HPI General Date/Time Provider Initiated Documentation: 10/18/22 12:19 . HPI Narrative: This 37-year-old female presents with report of nausea, vomiting, diarrhea intermittently for a week. Took Imodium this morning secondary to watery stool. Denies any fever or chills. Denies any abdominal pain. Denies any sick contacts. Related Data Home Medications Medication Instructions Recorded Confirmed omeprazole 40 mg capsule,delayed 40 mg PO BID PRN 05/25/18 02/17/22 release acyclovir 400 mg tablet 400 mg PO TID PRN PRN 10/19/18 02/17/22 albuterol sulfate 90 mcg/actuation 2 puff inhalation Q6H PRN 10/19/18 02/17/22 aerosol inhaler (ProAir HFA) cyclobenzaprine 5 mg tablet 5 mg PO QHS PRN 10/19/18 02/17/22 losartan 50 mg tablet 50 mg PO DAILY 10/19/18 02/17/22 multivitamin 1 tab PO DAILY 09/30/19 02/17/22 lidocaine 5 % topical ointment 1 applic topical QID PRN 03/23/20 02/17/22 verapamil 180 mg tablet,extended 180 mg PO DAILY 06/28/21 07/14/22 release buspirone 10 mg tablet 10 mg PO BID PRN 05/26/21 02/17/22 chlorthalidone 25 mg tablet 25 mg PO DAILY 05/26/21 02/17/22 cholecalciferol (vitamin D3) 50 50 mcg PO DAILY 05/26/21 02/17/22 mcg (2,000 unit) capsule mometasone 50 mcg/actuation nasal 2 spray intranasal DAILY PRN 05/26/21 02/17/22 spray (Nasonex) nicotine 10 mg inhalation 1 inh inhalation 4-6XD PRN 05/26/21 cartridge (Nicotrol) atenolol 100 mg tablet 100 mg PO QPM 09/17/21 02/17/22 duloxetine 60 mg capsule,delayed 60 mg PO BID 09/17/21 02/17/22 release potassium chloride 20 mEq 20 meq PO DAILY #7 tabs 09/17/21 02/17/22 tablet,extended release aspirin 81 mg tablet,delayed 81 mg PO DAILY 02/08/22 02/17/22 release (Adult Aspirin Regimen) diazepam 5 mg tablet 5 mg PO PRN 02/08/22 02/17/22 doxycycline hyclate 100 mg capsule 100 mg PO BID 02/08/22 02/17/22 duloxetine 60 mg capsule,delayed 60 mg PO BID 02/08/22 02/17/22 release (Cymbalta) fluticasone propionate 50 2 spray intranasal DAILY #16 grams 02/17/22 02/17/22 mcg/actuation nasal spray,suspension (Flonase Allergy Relief) magnesium gluconate 27.5 mg 27.5 mg PO BID #30 tabs 10/18/22 magnesium (500 mg) tablet promethazine 25 mg tablet 25 mg PO Q6H PRN #14 tabs 10/18/22 Previous Rx's Medication Instructions Recorded potassium chloride 20 mEq 20 meq PO DAILY #7 tabs 09/17/21 tablet,extended release fluticasone propionate 50 2 spray intranasal DAILY #16 grams 02/17/22 mcg/actuation nasal spray,suspension (Flonase Allergy Relief) magnesium gluconate 27.5 mg 27.5 mg PO BID #30 tabs 10/18/22 magnesium (500 mg) tablet promethazine 25 mg tablet 25 mg PO Q6H PRN #14 tabs 10/18/22 Allergies Allergy/AdvReac Type Severity Reaction Status Date / Time clindamycin Allergy Severe rash Verified 02/17/22 10:31 methotrexate Allergy Severe Anaphylaxsi Verified 02/17/22 10:31 s azithromycin [From Zithromax] Allergy Intermediate unknown Verified 02/17/22 10:31 Penicillins Allergy Intermediate Skin Rash Verified 02/17/22 10:31 Sulfa (Sulfonamide Allergy Intermediate RASH Verified 02/17/22 10:31 Antibiotics) sumatriptan [From Imitrex] Allergy Intermediate It made Verified 02/17/22 10:31 me stop breathing amoxicillin Allergy Mild Skin Rash Verified 02/17/22 10:31 enalapril AdvReac Severe resp. Verified 02/17/22 10:31 issues, chest pain bupropion [From Wellbutrin] AdvReac Intermediate chronic Verified 02/17/22 10:31 cough medroxyprogesterone AdvReac Intermediate weight gain Verified 02/17/22 10:31 [From Depo-Provera] General Stated Complaint: Nausea/Vomit/Diar KAREN: 3 PFSH All Active Problems (Updated 10/18/22 @ 14:18 by LAURA Elkins) Nausea vomiting and diarrhea (Acute) Hypomagnesemia (Acute) Nasal congestion (Acute) Abnormal auditory perception of right ear (Acute) Obstructive sleep apnea (Chronic) Tobacco abuse (Acute) Facial pressure (Acute) Preseptal cellulitis (Acute) Muscle strain (Acute) Hx of inguinal hernia repair (Acute) Paresthesia (Acute) Ethmoid sinusitis (Acute) Paresthesia of right arm (Acute) Paresthesia of right leg (Acute) Postop check (Acute) Groin cyst (Acute) Direct inguinal hernia of right side (Acute) Right groin mass (Acute) Boil (Acute) Systolic murmur (Acute) Hypertension (Chronic) Medical History ADHD Allergic rhinitis Depression with anxiety Dysfunctional uterine bleeding GERD (gastroesophageal reflux disease) Headache Hearing loss Heart murmur Herpes simplex HTN (hypertension) Ingrown toenail Migraine Myalgia Preeclampsia reported by patient. PTSD (post-traumatic stress disorder) Sleep apnea Viral upper respiratory infection Vitamin D deficiency Weight gain Surgical History Ligation of fallopian tube Family History Mother Stroke Uncle Myocardial infarct Paternal Grandmother Stroke Father Myocardial infarct Social History Smoking/Tobacco Use Status: Current every day Tobacco Type: cigarettes Years smoked: 16 Tobacco: How many years used: 16 Counseling given: patient declined Smoking risk assessment performed?: Yes Alcohol Intake: current Alcohol Intake frequency: holidays/special occasions only Drug use: Daily Substance use type: marijuana Current gender identity: female What type of physical activity do you participate in: none Do you feel safe at home: Yes Do you feel safe in your relationship?: Yes Exam Narrative Exam Narrative: Patient appears well, in no acute distress, moist mucous membranes, no scleral icterus, abdomen with mild diffuse tenderness, no focal tenderness, rebound, or guarding No pallor, fully alert and oriented, no peripheral edema, no CVA tenderness Course Vital Signs Vital signs: Vital Signs Temperature 37.1 C 10/18/22 12:02 Pulse 99 H 10/18/22 12:02 Respiratory Rate 16 10/18/22 12:02 Blood Pressure 116/74 10/18/22 12:02 Pulse Oximetry 99 10/18/22 12:02 Temperature 37.1 C 10/18/22 12:02 Pulse 99 H 10/18/22 12:02 Respiratory Rate 16 10/18/22 12:02 Respiratory Effort Normal, Non-Labored 10/18/22 12:25 Blood Pressure 116/74 10/18/22 12:02 Blood Pressure Position Sitting 10/18/22 12:02 Pulse Oximetry 99 10/18/22 12:02 Oxygen Delivery Method Room Air 10/18/22 12:02 Oxygen Flow Rate 0 10/18/22 12:02 Pain Level 5 10/18/22 12:02
[2022-10-18 12:48] LABS: Absolute Basophil Count 0.05 10^3/uL (0.0-0.2)
[2022-10-18 12:52] LABS: Bilirubin Negative (Negative); Blood Trace-intact (Negative); Clarity Clear (Clear); Glucose Negative (Negative); Ketones Negative (Negative); Leukocyte Esterase Negative (Negative); Nitrite Negative (Negative); Urobilinogen 0.2 mg/dL (Up to 0.2); pH 6.5 (5-8)
[2022-10-18 12:54] LABS: ALT 32 U/L (14-59); AST 16 U/L (15-37); Albumin 3.8 g/dL (3.4-5.0); Alkaline Phosphatase 42 U/L (46-116); BUN 14 mg/dL (7-18); Bilirubin, Total 0.4 mg/dL (0.2-1.0); CREATININE 0.9 mg/dL (0.55-1.02); Calcium 8.9 mg/dL (8.5-10.1); Chloride 101 mmol/L (98-107); Estimated GFR 84.97 (mL/min/1.73m2); Glucose 120 mg/dL (74-106); Magnesium 1.5 mg/dL (1.8-2.4); Potassium 3.6 mmol/L (3.5-5.1); Sodium 137 mmol/L (136-145); Total Protein 7.5 g/dL (6.4-8.2)
[2022-10-18] MEDS: Lactated Ringers 1,000 ML 1000 ML IV (12:55)
[2022-10-18] MEDS: Ondansetron 4 MG/2 ML VIAL IVP (12:55)
[2022-10-18 12:59] LABS: Bacteria Rare HPF (Negative); Casts Negative LPF (Negative); Crystals Negative HPF (Negative); Epithelial Cells Few HPF (Negative); Mucus Negative (Negative); WBC 0-2 HPF (0-5)
[2022-10-18 13:00] LABS: C & S Indicated? No
[2022-10-18] MEDS: Magnesium Gluconate 500 MG TAB PO (13:28)
[2022-10-18] MEDS: Acetaminophen 325 MG TAB 650 MG PO (13:28)
[2022-10-18 14:35] VITALS: BP 130/74; O2SAT 98
== END 2022-10-18 14:37 | disposition home or self-care (01) ==
PROVIDERS: Emergency Provider Physician Assistant; PCP Family Medicine
DX: R11.2 Nausea with vomiting, unspecified (principal); R19.7 Diarrhea, unspecified; E83.42 Hypomagnesemia
CPT/HCPCS: 80053; 96361; 96374; 99284; 81003; 81015; 83735; 85025; J2405

== ENCOUNTER 2022-10-19 07:53 | Outpatient (REF) | payer BC, SELFPAY ==
[2022-10-19 09:06] LABS: C Diff PCR Negative (Negative)
[2022-10-19 19:58] LABS: Campylobacter PCR Negative (Negative); Salmonella PCR Negative (Negative); Shiga Toxin PCR Negative (Negative); Shigella/Enteroinvasive Ecoli Negative (Negative)
== END 2022-10-19 07:54 | disposition home or self-care (01) ==
LOC: LBN 07:53
PROVIDERS: PCP Family Medicine; Visit Provider Physician Assistant
DX: R19.7 Diarrhea, unspecified (principal)
CPT/HCPCS: 87493; 87505

== ENCOUNTER 2023-03-07 17:56 | Outpatient (CLI) | payer BC, SELFPAY ==
--- NOTE | 2023-03-07 18:35 | DI.RAD_ITS ---
Exam(s) XR CHEST 2V PA LATERAL EXAM: XR CHEST 2V PA LATERAL CLINICAL HISTORY: INFLUENZA DUE TO INFLUENZA VIRUS. TECHNIQUE: 2D digital imaging was performed. COMPARISON: No exams were available for comparison FINDINGS: 2 views: Heart size is normal. The mediastinum is not widened. Lungs are clear. No infiltrates nor pleural effusions. IMPRESSION: No acute pulmonary findings. DATA REPOSITORY: RADIATION DOSE DELIVERED:
--- NOTE | 2023-03-07 18:58 | DI.VRAD_ITS ---
PROCEDURE INFORMATION: Exam: XR Chest Exam date and time: 03/07/2023 6:29 PM Age: 37 years old Clinical indication: Wheezing and other: Influenza TECHNIQUE: Imaging protocol: Radiologic exam of the chest. Views: 2 views. COMPARISON: CR XR CHEST 2V PA LATERAL 05/25/2018 7:55 PM FINDINGS: Lungs: Low lung volumes. No consolidation. Question mild peribronchial thickening Pleural spaces: Unremarkable. No pleural effusion. No pneumothorax. Heart/Mediastinum: Unremarkable. No cardiomegaly. Bones/joints: Unremarkable. IMPRESSION: No focal consolidation Question mild bronchitis. Dictated and Authenticated by: Adolfo Pelletier MD. Ordering:REBEKA NICOLE MD
== END 2023-03-07 18:16 ==
LOC: DI 17:57
PROVIDERS: PCP Family Medicine; Visit Provider Nurse Practitioner Family
DX: J10.1 Influenza due to other identified influenza virus with other respiratory manifestations (principal)
CPT/HCPCS: 71046

== ENCOUNTER 2023-09-19 17:56 | Outpatient (REF) | payer BC, SELFPAY ==
[2023-09-19 18:59] LABS: HCT 38.1 % (36.0-46.0); HGB 13.3 g/dL (11.2-15.7); MCH 30.6 pg (27.0-33.0); MCHC 34.9 % (32.0-36.0); MCV 88 fL (80-95); MPV 10.1 fL (8.0-11.0); Platelet Count 388 10^3/uL (130-400); RBC 4.35 10^6/uL (3.93-5.22); RDW 12.4 % (11.7-14.6); RDW-SD 39.8 fL; WBC 10.32 10^3/uL (4.4-10.8)
[2023-09-19 19:29] LABS: TSH (W/Ref FT4) 0.72 uIU/mL (0.36-3.74)
== END 2023-09-19 17:57 | disposition home or self-care (01) ==
LOC: NCHCN 17:56
PROVIDERS: PCP Family Medicine; Visit Provider Nurse Practitioner Family
DX: N92.0 Excessive and frequent menstruation with regular cycle (principal)
CPT/HCPCS: 85027; 84443; 87480; 87510; 87660

== ENCOUNTER 2023-12-06 18:03 | Outpatient (REF) | payer BC, SELFPAY ==
[2023-12-06 21:18] LABS: Abs Immature Grans 0.03 10^3/uL (0.0-0.06); Absolute Eosinophil Count 0.17 10^3/uL (0.0-0.7); Absolute Lymphocyte Count 3.87 10^3/uL (1.2-3.4); Absolute Monocyte Count 0.75 10^3/uL (0.1-0.8); Basophils % 0.6 %; Eosinophils % 1.6 %; HCT 39.4 % (36.0-46.0); HGB 13.8 g/dL (11.2-15.7); Immature Grans % 0.3 %; Lymphocytes % 35.7 %; MCH 30.7 pg (27.0-33.0); MCV 88 fL (80-95); MPV 10.3 fL (8.0-11.0); Monocytes % 6.9 %; Neutrophils % 54.9 %; Platelet Count 396 10^3/uL (130-400); RBC 4.49 10^6/uL (3.93-5.22); RDW 12.2 % (11.7-14.6); RDW-SD 38.9 fL; WBC 10.84 10^3/uL (4.4-10.8)
[2023-12-06 21:20] LABS: Absolute Basophil Count 0.07 10^3/uL (0.0-0.2); Absolute Neutrophil Count 5.95 10^3/uL (1.2-6.7); ESR 9 mm/hr (0-20)
[2023-12-06 21:31] LABS: Anion Gap 13.6 mmol/L (3-11); BUN 15 mg/dL (7-18); CO2 25.4 mmol/L (21.0-32.0); CREATININE 0.9 mg/dL (0.55-1.02); Calcium 9.6 mg/dL (8.5-10.1); Chloride 99 mmol/L (98-107); Estimated GFR 84.44 (mL/min/1.73m2); Glucose 90 mg/dL (74-106); Potassium 3.7 mmol/L (3.5-5.1); Sodium 138 mmol/L (136-145)
[2023-12-06 21:39] LABS: Hemoglobin A1C 6.1 % (<5.7)
== END 2023-12-06 18:04 | disposition home or self-care (01) ==
LOC: NCHCN 18:03
PROVIDERS: PCP Family Medicine; Visit Provider Physician Assistant Medical
DX: R51.9 Headache, unspecified (principal)
CPT/HCPCS: 80048; 85652; 83036; 83735; 85025

== ENCOUNTER 2024-02-13 18:16 | Outpatient (REF) | payer BC, SELFPAY | END 2024-02-13 18:17 | disposition home or self-care (01) | LOC: NCHCN 18:16 | PROVIDERS: PCP Family Medicine; Visit Provider Family Medicine | DX: N92.0 Excessive and frequent menstruation with regular cycle (principal) | CPT/HCPCS: 81513; 87481; 87661; 87480; 87510; 87660 ==

== ENCOUNTER 2025-04-01 08:57 | Emergency (ER) | payer OTHER, SELFPAY ==
[2025-04-01 09:11] VITALS: BP 135/91; PULSE 94; RESP 15; TEMP 36.7; O2SAT 95
[2025-04-01 09:14] VITALS: BP 135/91; PULSE 94; RESP 15; TEMP 36.7; O2SAT 95
[2025-04-01] MEDS: Normal Saline 1,000 ML 1000 ML IV (10:08)
[2025-04-01] MEDS: Famotidine 20 MG/2 ML VIAL IVP (10:09)
[2025-04-01] MEDS: Droperidol 5 MG/2 ML VIAL 2.5 MG IVP (10:09)
[2025-04-01] MEDS: Ketorolac 15 MG/ML VIAL IVP (10:09)
[2025-04-01] MEDS: MAGNESIUM SULFATE 2 GM/50 ML BAG IV_INF (10:10)
--- NOTE | 2025-04-01 10:32 | W.ED.GENAD ---
Discharge Plan Disposition Patient Disposition: Home Discharge Details Clinical Impression: Headache, migraine Primary Care Provider: Rosa Steve V ED Provider: Zbigniew Veliz Home Meds and New Rx's Prescriptions: Continued duloxetine [Cymbalta] 60 mg capsule,delayed release(DR/EC) 60 mg PO BID doxycycline hyclate 100 mg capsule 100 mg PO BID diazepam 5 mg tablet 5 mg PO PRN aspirin [Adult Aspirin Regimen] 81 mg tablet,delayed release (DR/EC) 81 mg PO DAILY fluticasone propionate [Flonase Allergy Relief] 50 mcg/actuation spray,suspension 2 spray intranasal DAILY Qty: 16 12RF Rx Instructions: administer into each nostril multivitamin Tablet 1 tab PO DAILY lidocaine 5 % ointment 1 applic TP QID PRN buspirone 10 mg tablet 10 mg PO BID PRN mometasone [Nasonex] 50 mcg/actuation spray,non-aerosol 2 spray intranasal DAILY PRN Rx Instructions: administer into each nostril Nicotrol 10 mg cartridge 1 inh inhalation 4-6XD PRN cholecalciferol (vitamin D3) 50 mcg (2,000 unit) capsule 50 mcg PO DAILY chlorthalidone 25 mg tablet 25 mg PO DAILY omeprazole 40 mg Capsule,Delayed Release(Dr/Ec) 40 mg PO BID PRN magnesium gluconate 27.5 mg magne- sium (500 mg) tablet 27.5 mg PO BID Qty: 30 0RF promethazine 25 mg tablet 25 mg PO Q6H PRNQty: 14 0RF losartan 50 mg Tablet 50 mg PO DAILY acyclovir 400 mg Tablet 400 mg PO TID PRN PRN albuterol sulfate [ProAir HFA] 90 mcg/actuation Hfa Aerosol Inhaler 2 puff INHALATION Q6H PRN cyclobenzaprine 5 mg Tablet 5 mg PO QHS PRN verapamil 180 mg tablet extended release 180 mg PO DAILY Patient Comments: TAKE ONE TABLET BY MOUTH EVERY DAY duloxetine 60 mg capsule,delayed release(DR/EC) 60 mg PO BID Patient Comments: TAKE 1 CAPSULE ORALLY IN MORNING AND AT NIGHT atenolol 100 mg tablet 100 mg PO QPM Patient Comments: TAKE ONE TABLET BY MOUTH EVERY DAY potassium chloride 20 mEq tablet extended release 20 meq PO DAILY Qty: 7 0RF Discharge Instructions Additional Instructions: Please follow-up with your primary care provider regarding your visit to the emergency department today. Be sure to discuss results of all test performed here today to include radiology, and laboratory testing as well as results for any pending cultures. Should your symptoms worsen, or if you develop new concerning symptoms, please return immediately emergency department for further evaluation. Stand Alone Forms: Work Release HPI General Date/Time Provider Initiated Documentation: 04/01/25 09:00. HPI Narrative: MDM/Narrative: Initial Assessment: 39-year-old female with severe headache starting on Monday, progressively worsening. History of migraines, fibromyalgia, and hypertension. Reports widespread body pain and stomach issues with ibuprofen. Differential Diagnosis: - Migraine headache: Severe, progressively worsening, history of migraines. Plan: Administer droperidol, magnesium, IV fluids. - Tension headache: Neck tension, widespread body pain. Plan: Consider trigger point injections if no improvement. - Hypertension: History of hypertension, slightly elevated today. Plan: Continue current medication regimen. - Gastrointestinal issues: Stomach pain with ibuprofen, not taken famotidine in a couple of days. Plan: Provide famotidine. ED Course: Tylenol at 0630 hours, droperidol, magnesium, IV fluids administered. 11:15 AM On reassessment, patient notes significant improvement of her headache, denies any other new complaints, is now stable for discharge. This document was created with assistance from [employer]. The patient consented to its use. Disposition: Home HPI: The patient is a 39-year-old female with a medical history significant for migraines, fibromyalgia, and hypertension, presenting with cephalalgia. The headache commenced gradually on 03/28/2025 post-work, characterized as a tension-type headache, localized to the cervical region and periorbital area, with an intensity rated at 10/10. The severity has progressively worsened since onset. Administration of acetaminophen at 0630 hours today failed to provide analgesia. The patient was unable to consult her regular physician today. She denies the possibility of , as well as any associated numbness, weakness, or dysphasia. The migraine aura resolved subsequent to 03/28/2025. The patient has not taken famotidine for several days and avoids ibuprofen due to gastric distress. She expresses a desire to return to work tomorrow. Although prescribed migraine prophylaxis, she refrains from using it due to concerns about exacerbating her hypertension and the potential risk of cerebrovascular or cardiovascular events. She manages her migraines with acetaminophen and ketorolac injections administered by Dr. Cotton. The patient reports intense pain in her lower extremities, hips, spine, and shoulders, which she attributes to extensive ambulation. She is currently on pharmacotherapy for depression and fibromyalgia and adheres strictly to her medication regimen. ROS: Negative besides as mentioned above Exam: Vital signs: Reviewed. General Appearance: Appears in distress due to headache. HEENT: Pupils equal, round, reactive to light. Neck: Supple, full range of motion, no observable masses, No meningeal sign. Respiratory: No Respiratory distress. No tachypnea. Cardiovascular: RRR, no edema. Gastrointestinal: Soft, nondistended, No rebound tenderness. Back: No midline tenderness to palpation or palpable step-offs of the C/T/L spine. Skin: Warm and dry, no rash. Neurological: No numbness, weakness, or changes in speech. Psychiatric: Appropriate for situation. Related Data Home Medications ?Medication ?Instructions ?Recorded ?Confirmed omeprazole 40 mg capsule,delayed 40 mg PO BID PRN 05/25/18 02/17/22 release acyclovir 400 mg tablet 400 mg PO TID PRN PRN 10/19/18 02/17/22 albuterol sulfate 90 mcg/actuation 2 puff inhalation Q6H PRN 10/19/18 02/17/22 aerosol inhaler (ProAir HFA) cyclobenzaprine 5 mg tablet 5 mg PO QHS PRN 10/19/18 02/17/22 losartan 50 mg tablet 50 mg PO DAILY 10/19/18 02/17/22 multivitamin 1 tab PO DAILY 09/30/19 02/17/22 lidocaine 5 % topical ointment 1 applic topical QID PRN 03/23/20 02/17/22 verapamil 180 mg tablet,extended 180 mg PO DAILY 02/01/21 02/17/22 release buspirone 10 mg tablet 10 mg PO BID PRN 05/26/21 02/17/22 chlorthalidone 25 mg tablet 25 mg PO DAILY 05/26/21 02/17/22 cholecalciferol (vitamin D3) 50 50 mcg PO DAILY 05/26/21 02/17/22 mcg (2,000 unit) capsule mometasone 50 mcg/actuation nasal 2 spray intranasal DAILY PRN 05/26/21 02/17/22 spray (Nasonex) nicotine 10 mg inhalation 1 inh inhalation 4-6XD PRN 05/26/21 cartridge (Nicotrol) atenolol 100 mg tablet 100 mg PO QPM 09/17/21 02/17/22 duloxetine 60 mg capsule,delayed 60 mg PO BID 09/17/21 02/17/22 release potassium chloride 20 mEq 20 meq PO DAILY #7 tabs 09/17/21 02/17/22 tablet,extended release aspirin 81 mg tablet,delayed 81 mg PO DAILY 02/08/22 02/17/22 release (Adult Aspirin Regimen) diazepam 5 mg tablet 5 mg PO PRN 02/08/22 02/17/22 doxycycline hyclate 100 mg capsule 100 mg PO BID 02/08/22 02/17/22 duloxetine 60 mg capsule,delayed 60 mg PO BID 02/08/22 02/17/22 release (Cymbalta) fluticasone propionate 50 2 spray intranasal DAILY #16 grams 02/17/22 02/17/22 mcg/actuation nasal spray,suspension (Flonase Allergy Relief) magnesium gluconate 27.5 mg 27.5 mg PO BID #30 tabs 10/18/22 magnesium (500 mg) tablet promethazine 25 mg tablet 25 mg PO Q6H PRN #14 tabs 10/18/22 Previous Rx's ?Medication ?Instructions ?Recorded potassium chloride 20 mEq 20 meq PO DAILY #7 tabs 09/17/21 tablet,extended release fluticasone propionate 50 2 spray intranasal DAILY #16 grams 02/17/22 mcg/actuation nasal spray,suspension (Flonase Allergy Relief) magnesium gluconate 27.5 mg 27.5 mg PO BID #30 tabs 10/18/22 magnesium (500 mg) tablet promethazine 25 mg tablet 25 mg PO Q6H PRN #14 tabs 10/18/22 Allergies Allergy/AdvReac Type Severity Reaction Status Date / Time clindamycin Allergy Severe rash Verified 02/17/22 10:31 methotrexate Allergy Severe Anaphylaxsi Verified 02/17/22 10:31 s azithromycin (From Zithromax) Allergy Intermediate unknown Verified 02/17/22 10:31 Penicillins Allergy Intermediate Skin Rash Verified 02/17/22 10:31 Sulfa (Sulfonamide Allergy Intermediate RASH Verified 02/17/22 10:31 Antibiotics) sumatriptan (From Imitrex) Allergy Intermediate It made Verified 02/17/22 10:31 me stop breathing amoxicillin Allergy Mild Skin Rash Verified 02/17/22 10:31 enalapril AdvReac Severe resp. Verified 02/17/22 10:31 issues, chest pain bupropion (From Wellbutrin) AdvReac Intermediate chronic Verified 02/17/22 10:31 cough medroxyprogesterone (From AdvReac Intermediate weight gain Verified 02/17/22 10:31 Depo-Provera) General Stated Complaint: Headache KAREN: 3 Course Vital Signs Vital signs: Vital Signs Temperature 36.7 C 04/01/25 09:11 Pulse 94 H 04/01/25 09:11 Respiratory Rate 15 04/01/25 09:11 Blood Pressure 135/91 H 04/01/25 09:11 Pulse Oximetry 95 04/01/25 09:11 Temperature 36.7 C 04/01/25 09:14 Temperature Source Oral 04/01/25 09:14 Pulse 94 H 04/01/25 09:14 Respiratory Rate 15 04/01/25 09:14 Blood Pressure 135/91 H 04/01/25 09:14 Blood Pressure Position Sitting 04/01/25 09:14 Pulse Oximetry 95 04/01/25 09:14 Oxygen Delivery Method Room Air 04/01/25 09:14 Oxygen Flow Rate 0 04/01/25 09:14 Pain Level 10 04/01/25 09:14 PFSH All Active Problems (Updated 04/01/25 @ 11:24 by Zbigniew Veliz MD) Headache, migraine (Chronic) Nasal congestion (Acute) Abnormal auditory perception of right ear (Acute) Obstructive sleep apnea (Chronic) Tobacco abuse (Acute) Facial pressure (Acute) Preseptal cellulitis (Acute) Muscle strain (Acute) Hx of inguinal hernia repair (Acute) Paresthesia (Acute) Ethmoid sinusitis (Acute) Paresthesia of right arm (Acute) Paresthesia of right leg (Acute) Postop check (Acute) Groin cyst (Acute) Direct inguinal hernia of right side (Acute) Right groin mass (Acute) Boil (Acute) Systolic murmur (Acute) Hypertension (Chronic) Medical History ADHD Allergic rhinitis Depression with anxiety Dysfunctional uterine bleeding GERD (gastroesophageal reflux disease) Headache Hearing loss Heart murmur Herpes simplex HTN (hypertension) Ingrown toenail Migraine Myalgia Preeclampsia reported by patient. PTSD (post-traumatic stress disorder) Sleep apnea Viral upper respiratory infection Vitamin D deficiency Weight gain Surgical History Ligation of fallopian tube Family History Mother Stroke Uncle Myocardial infarct Paternal Grandmother Stroke Father Myocardial infarct Social History Smoking/Tobacco Use Status: Current every day Tobacco Type: cigarettes Years smoked: 16 Tobacco: How many years used: 16 Counseling given: patient declined Smoking risk assessment performed?: Yes Alcohol Intake: current Alcohol Intake frequency: holidays/special occasions only Drug use: Daily Substance use type: marijuana Current gender identity: female What type of physical activity do you participate in: none Do you feel safe at home: Yes Do you feel safe in your relationship?: Yes
[2025-04-01 11:48] VITALS: BP 129/76; PULSE 85; RESP 16; O2SAT 98
== END 2025-04-01 11:50 | disposition home or self-care (01) ==
LOC: ER 11:52
PROVIDERS: Emergency Provider General Practice; PCP Family Medicine
DX: G43.909 Migraine, unspecified, not intractable, without status migrainosus (principal); I10 Essential (primary) hypertension
CPT/HCPCS: 96365; 96366; 96375; 99284; 99283; J1790; J1885; J3475